=== PATIENT | female | born 1975 | race Caucasian/White ===

== ENCOUNTER 2016-07-11 07:26 | Day surgery (SDC) | payer BC, OTHER ==
[2016-07-07 10:46] LABS: ABSOLUTE BASOPHILS # (AUTO) 0.1 10^3/uL (0.0-0.2); ABSOLUTE EOSINOPHILS # (AUTO) 0.2 10^3/uL (0.0-0.6); ABSOLUTE LYMPHOCYTES (AUTO) 1.4 10^3/uL (0.5-4.7); ABSOLUTE MONOCYTES (AUTO) 0.8 10^3/uL (0.1-1.4); ABSOLUTE NEUT (AUTO) 6.1 10^3/uL (1.7-8.2); BASOPHILS % (AUTO) 1.1 % (0-2); EOSINOPHILS % (AUTO) 2.9 % (0-6); HEMATOCRIT 38.4 % (36.0-47.0); HEMOGLOBIN 12.4 g/dL (12.0-15.5); HGB HCT DIFFERENCE -1.2; LYMPHOCYTES % (AUTO) 16.5 % (13-45); MEAN CORPUSCULAR HEMOGLOBIN 29.6 pg (27.0-33.4); MEAN CORPUSCULAR HGB CONC 32.2 g/dL (32.0-36.0); MEAN CORPUSCULAR VOLUME 92 fl (80-97); RED BLOOD COUNT 4.18 10^6/uL (3.72-5.28); RED CELL DISTRIBUTION WIDTH 13.3 % (11.5-14.0); SEGMENTED NEUTROPHILS % (AUTO) 70.5 % (42-78); WHITE BLOOD COUNT 8.6 10^3/uL (4.0-10.5)
[2016-07-11] MEDS ORDERED: LIDOCAINE 1%/EPINEPHRINE INJ 20 ML VIAL ONE (08:10)
[2016-07-11] MEDS ORDERED: MIDAZOLAM 2 MG/2 ML INJ ONE (08:20)
[2016-07-11] MEDS ORDERED: DEXAMETHASONE SOD PHOS INJ 10 MG/1 ML VIAL ONE (08:21)
[2016-07-11] MEDS ORDERED: ONDANSETRON HCL INJ/PF 4 MG/2 ML SDV ONE (08:21)
[2016-07-11] MEDS ORDERED: HYDROMORPHONE HCL INJ/PF 2 MG/ML AMPULE ONE (08:21)
[2016-07-11] MEDS ORDERED: SUCCINYLCHOLINE CHLORIDE INJ 200 MG/10 ML VIAL ONE (08:22)
[2016-07-11] MEDS ORDERED: PROPOFOL INJ 200 MG/20 ML VIAL IV ONE (08:22)
--- NOTE | 2016-07-11 09:08 | OPERATIVE REPORT E ---
Operative Report NAME: BABS KYLE : 1975 AGE: 41Y DATE OF SURGERY: 07/11/2016 ROOM: PREOPERATIVE DIAGNOSIS: Tonsil stones. POSTOPERATIVE DIAGNOSIS: Tonsil stones. OPERATION: Tonsillectomy. SURGEON: MAKI REDDY III, M.D. MANAGER PROGRAMMING: None. ANESTHESIA: General. ESTIMATED BLOOD LOSS: Less than 2 mL. FLUIDS: D5 regular lactate. DRAINS: None. CULTURES: None. PROCEDURE: The patient was properly identified, as was the operative procedure, and was satisfactory to all operating room personnel. A McIvor mouth gag was inserted in the oropharynx and engaged. The left tonsil was grasped with the tonsillar tenaculum and retracted medially. Using a combination of blunt and electrodissection, tonsil was dissected away from its bed. Hemostasis was obtained using electrocautery. A similar procedure was performed on the opposite tonsil. Hemostasis was excellent. The patient appeared to tolerate her procedure well and was returned to the recovery room in satisfactory condition. DICTATING PHYSICIAN: MAKI REDDY III M.D. [id number] Y#: [id number] ID: [id number] JOB#: [id number] ACCT: [id number] cc:MAKI REDDY III, M.D. >
[2016-07-11] MEDS ORDERED: OXYCODONE-ACETAMINOPHEN 5-325 MG TABLET ONE (09:33)
== END 2016-07-11 10:20 | disposition home or self-care (01) ==
LOC: SC 07:26
PROVIDERS: ATTEND Otolaryngology
PROC: 0CTPXZZ Resection of Tonsils, External Approach (ICD-10-PCS; principal; 2016-07-11 08:15)
DX: J35.8 Other chronic diseases of tonsils and adenoids (principal); J35.1 Hypertrophy of tonsils; Z88.2 Allergy status to sulfonamides
CPT/HCPCS: 36415; 85025; 88304 ×2; 42826; J2250; J1170; J0330; J2405; J2704; J1100; 170; J3490

== ENCOUNTER → 2017-01-01 | Outpatient (CLI) | payer BC ==
--- NOTE | 2017-01-01 15:50 | WOMENS IMAGING REPORT ---
EXAM DESCRIPTION: 3D SCREENING MAMMO BILAT COMPLETED DATE/TIME: 01/01/2017 1:39 pm REASON FOR STUDY: Z12.31, ROUTINE SCREENING MAMMO Z12.31 ENCNTR SCREEN MAMMOGRAM FOR MALIGNANT NEOP LASM OF TABBY COMPARISON: In 2015 and December 2012 TECHNIQUE: Standard craniocaudal and mediolateral oblique views of each breast recorded using digita l acquisition and breast tomosynthesis. Additional "push-back craniocaudal and mediolateral oblique images acquired. LIMITATIONS: None. FINDINGS: IMPLANTS: Bilateral intact Findings present which are benign by mammographic criteria. No suspicious masses, calcifications or a rchitectural distortion. Read with the assistance of CAD. .[facility] - R2 Cenova Version 1.3 .[facility] - R2 Cenova Version 1.3 .[facility] - R2 Cenova Version 2.4 .[facility] - R2 Cenova Version 2.4 .[facility] - R2 Slot Service Specialist Version 9.2 Benign mammographic findings may include one or more of the following: Smooth masses, popcorn/rim/co arse calcifications, asymmetries, post-procedure changes, and lesions with long-standing stability. IMPRESSION: BENIGN MAMMOGRAPHIC FINDINGS. BIRADS 2 BREAST DENSITY: b. There are scattered areas of fibroglandular density. BIRAD: 2 BENIGN FINDING(S) RECOMMENDATION: ROUTINE SCREENING COMMENT: The patient has been notified of the results by letter per SA requirements. Additional no tification policies are in place for contacting patient with suspicious or incomplete findings. Quality ID #[id number]: The [employer] recommends an annual screening mammogram for women aged 40 years or over. This facility utilizes a reminder system to ensure that all patients receive reminder letters, and/or direct phone calls for appointments. This includes reminders for routine scr eening mammograms, diagnostic mammograms, or other Breast Imaging Interventions when appropriate. Th is patient will be placed in the appropriate reminder system. The [employer] [place] [employer] (ACR) has developed recommendations for screening MRI of the breast s in certain patient populations, to be used in conjunction with mammography. Breast MRI surveillanc e may be appropriate for women with more than 20% lifetime risk of developing breast cancer as deter mined by genetic testing, significant family history of the disease, or history of mantle radiation f or Hodgkins Disease. ACR Practice Guidelines 2008. DBT Technology DBT is a type of tomographic mammography. With conventional mammography, overlapping breast tissue ma y make lesions difficult to detect, even with good compression. DBT uses an x-ray tube that rotates a round the breast, taking images at different angles. These images are then combined to create thin sl ices of the breast that the radiologist can view as a 3D reconstruction. The HoloTherosteon unit can perform full-field digital mammograms (2D imaging); or DBT (3D imaging); or both, in a combination mode that quickly performs both the mammogram and the tomosynthesis scan while the breast is still compressed. PQRS 6045F: Fluoroscopic imaging is not utilized for breast tomosynthesis. TECHNICAL DOCUMENTATION: FINDING NUMBER: (1) ASSESSMENT: (1) JOB ID: [id number] [employer]- All Rights Reserved
== END ==
LOC: WI 13:00
PROVIDERS: ATTEND Physician Assistant
DX: Z12.31 Encounter for screening mammogram for malignant neoplasm of breast (principal)
CPT/HCPCS: 77063; G0202; 77067

== ENCOUNTER 2018-03-27 16:32 | Inpatient (IN) | payer BC ==
--- NOTE | 2018-03-27 16:53 | ER Document Report ---
ED Medical Screen (RME) - General Chief Complaint: Fever Stated Complaint: FEVER Time Seen by Provider: 03/27/18 16:51 Mode of Arrival: Ambulatory Information source: Patient TRAVEL OUTSIDE OF THE [place] IN LAST 30 DAYS: No - HPI Patient complains to provider of: fever Onset: Other - pt with h/o MS with fever tyo 103.7 over the past 3 days. Went to yesterday and had some tests done. Spoke to her neurologist today and told to go to ED for LP. Has a disc with CXR on it. - Related Data Allergies/Adverse Reactions: Sulfa (Sulfonamide Antibiotics) Allergy (Intermediate, Verified 03/27/18 16:33) rash/hives Past Medical History - Past Medical History Cardiac Medical History: Denies: Hx Heart Attack, Hx Hypertension Pulmonary Medical History: Denies: Hx Asthma Neurological Medical History: Denies: Hx Cerebrovascular Accident, Hx Seizures GI Medical History: Denies: Hx Hepatitis, Hx Hiatal Hernia, Hx Ulcer Infectious Medical History: Denies: Hx Hepatitis Past Surgical History: Denies: Hx Hysterectomy, Hx Mastectomy, Hx Open Heart Surgery, Hx Pacemaker - Immunizations Hx Diphtheria, Pertussis, Tetanus Vaccination: Yes Physical Exam - Vital signs Vitals: Temp Pulse Resp BP Pulse Ox 98.8 F 94 16 102/59 L 100 03/27/18 16:39 03/27/18 16:39 03/27/18 16:39 03/27/18 16:39 03/27/18 16:39 Course - Vital Signs Vital signs: Temp Pulse Resp BP Pulse Ox 98.8 F 94 16 102/59 L 100 03/27/18 16:39 03/27/18 16:39 03/27/18 16:39 03/27/18 16:39 03/27/18 16:39 Doctor's Discharge - Discharge Referrals: MARLEY CASILLAS PA-C [Primary Care Provider] - Follow up as needed
[2018-03-27 17:37] LABS: ABSOLUTE EOSINOPHILS # (AUTO) 0.1 10^3/uL (0.0-0.6); ABSOLUTE MONOCYTES (AUTO) 0.1 10^3/uL (0.1-1.4); ABSOLUTE NEUT (AUTO) 0.1 10^3/uL (1.7-8.2); BASOPHILS % (AUTO) 1.3 % (0-2); EOSINOPHILS % (AUTO) 33.4 % (0-6); HEMATOCRIT 30.7 % (36.0-47.0); HEMOGLOBIN 10.8 g/dL (12.0-15.5); LYMPHOCYTES % (AUTO) 9.2 % (13-45); MEAN CORPUSCULAR HEMOGLOBIN 31.2 pg (27.0-33.4); MEAN CORPUSCULAR HGB CONC 35.3 g/dL (32.0-36.0); MEAN CORPUSCULAR VOLUME 88 fl (80-97); MONOCYTES % (AUTO) 18.3 % (3-13); RED BLOOD COUNT 3.47 10^6/uL (3.72-5.28); RED CELL DISTRIBUTION WIDTH 13.8 % (11.5-14.0); SEGMENTED NEUTROPHILS % (AUTO) 37.8 % (42-78); TOTAL CELLS COUNTED % (AUTO) 100 %
[2018-03-27 17:48] LABS: ALANINE AMINOTRANSFERASE 25 U/L (9-52); ALBUMIN 3.7 g/dL (3.5-5.0); ALKALINE PHOSPHATASE 84 U/L (38-126); ANION GAP 10 (5-19); ASPARTATE AMINO TRANSFERASE 21 U/L (14-36); BILIRUBIN,DIRECT 0.2 mg/dL (0.0-0.4); BILIRUBIN,TOTAL 0.6 mg/dL (0.2-1.3); BLOOD UREA NITROGEN 7 mg/dL (7-20); CALCIUM 8.6 mg/dL (8.4-10.2); CARBON DIOXIDE 23 mmol/L (22-30); CHLORIDE 104 mmol/L (98-107); GLUCOSE 101 mg/dL (75-110); POTASSIUM 3.7 mmol/L (3.6-5.0); SODIUM 136.8 mmol/L (137-145); TOTAL PROTEIN 6.7 g/dL (6.3-8.2)
[2018-03-27 17:56] LABS: PLATELET COUNT 190 10^3/uL (150-450)
[2018-03-27 17:57] LABS: WHITE BLOOD COUNT 0.3 10^3/uL (4.0-10.5)
[2018-03-27 17:58] LABS: OVALOCYTES SLIGHT; PLATELET CLUMPS PRESENT; PLATELET COMMENT ADEQUATE; POIKILOCYTOSIS 1+; TEAR DROP CELLS SLIGHT
[2018-03-27] MEDS ORDERED: VANCOMYCIN HCL INJ 1000 MG VIAL IV ONE (18:42)
[2018-03-27] MEDS ORDERED: CEFEPIME 2 GM/D5W RTU 2 GM/50 ML RTUPB IV ONE (18:42)
[2018-03-27] MEDS ORDERED: NORMAL SALINE 1000 ML 1,000 ML IV ONE (18:42)
--- NOTE | 2018-03-27 19:05 | ER Document Report ---
ED General - General Chief Complaint: Fever Stated Complaint: FEVER Time Seen by Provider: 03/27/18 16:51 Mode of Arrival: Ambulatory Notes: Patient is a 43-year-old female with a past medical history of multiple sclerosis recently started on immunomodulatory therapy for treatment who presents with fever. The patient has had fever up to 103.9 F starting 48 hours ago. Her only additional symptom is a scratchy throat. She states that when the fever is present she does have a mild, global, throbbing headache which is not currently present. She has been using Tylenol with improvement of her fever. She has followed up with a neurologist base out [facility] who requested that she come to the emergency department today for further assessment. No history of similar symptoms in the past since starting this therapy. TRAVEL OUTSIDE OF THE [place] IN LAST 30 DAYS: No - Related Data Allergies/Adverse Reactions: Sulfa (Sulfonamide Antibiotics) Allergy (Intermediate, Verified 03/27/18 16:33) rash/hives Past Medical History - General Information source: Patient - Social History Smoking Status: Never Smoker Frequency of alcohol use: Occasional Drug Abuse: None Lives with: Spouse/Significant other Family History: Reviewed & Not Pertinent Patient has suicidal ideation: No Patient has homicidal ideation: No - Past Medical History Cardiac Medical History: Denies: Hx Heart Attack, Hx Hypertension Pulmonary Medical History: Denies: Hx Asthma Neurological Medical History: Denies: Hx Cerebrovascular Accident, Hx Seizures Renal/ Medical History: Denies: Hx Peritoneal Dialysis GI Medical History: Denies: Hx Hepatitis, Hx Hiatal Hernia, Hx Ulcer Psychiatric Medical History: Reports: Hx Depression Infectious Medical History: Denies: Hx Hepatitis Past Surgical History: Reports: Hx Breast Surgery - Breast Augmentation, Hx Oral Surgery - [place] Teeth, Hx Tonsillectomy. Denies: Hx Hysterectomy, Hx Mastectomy, Hx Open Heart Surgery, Hx Pacemaker - Immunizations Hx Diphtheria, Pertussis, Tetanus Vaccination: Yes Review of Systems - Review of Systems Notes: Constitutional: Positive for fever. HENT: Positive for sore throat. Eyes: Negative for visual changes. Cardiovascular: Negative for chest pain. Respiratory: Negative for shortness of breath. Gastrointestinal: Negative for abdominal pain, vomiting or diarrhea. Genitourinary: Negative for dysuria. Musculoskeletal: Negative for back pain. Skin: Negative for rash. Neurological: Negative for headaches, weakness or numbness. 10 point ROS negative except as marked above and in HPI. Physical Exam - Vital signs Vitals: Temp Pulse Resp BP Pulse Ox 98.8 F 94 16 102/59 L 100 03/27/18 16:39 03/27/18 16:39 03/27/18 16:39 03/27/18 16:39 03/27/18 16:39 Interpretation: Normal Notes: PHYSICAL EXAMINATION: GENERAL: Well-appearing, well-nourished and in no acute distress. HEAD: Atraumatic, normocephalic. EYES: Pupils equal round and reactive to light, extraocular movements intact, sclera anicteric, conjunctiva are normal. ENT: nares patent, oropharynx clear without exudates. Moist mucous membranes. NECK: Normal range of motion, supple without lymphadenopathy LUNGS: Breath sounds clear to auscultation bilaterally and equal. No wheezes rales or rhonchi. HEART: Regular rate and rhythm without murmurs ABDOMEN: Soft, nontender, normoactive bowel sounds. No guarding, no rebound. No masses appreciated. EXTREMITIES: Normal range of motion, no pitting or edema. No cyanosis. NEUROLOGICAL: No focal neurological deficits. Moves all extremities spontaneously and on command. PSYCH: Normal mood, normal affect. SKIN: Warm, Dry, normal turgor, no rashes or lesions noted. Course - Re-evaluation Re-evalutation: 03/27/18 19:03 Patient presents with neutropenic fever without localizing infectious symptoms. Initial documentation is delayed as I have been at this patient's bedside discussing with the family as well as discussing with the patient's neurologist for the past 35 minutes. Patient is otherwise very well in appearance, no meningismus, no cough, no sputum production, no pharyngitis or lymphadenopathy. Symptoms appear to be most likely consistent with a drug fever but given her profound neutropenia and fever she will require hospitalization on IV time antibiotics and cultures are pending. I have reassessed the patient on 2 separate occasions already, have had multiple conversations with the family, contacted the patient's neurologist in [place] Dr. Felix and I have also discussed this case with our local customer counter associate Dr. Doss. The patient has been started on cefepime and vancomycin. Maintenance fluids have been initiated. Will discuss with the hospitalist for admission. 03/27/18 19:24 Patient continues to be well in appearance. I discussed with Dr. Garrido who is excepted the patient for admission and is in agreement with management plan. - Vital Signs Vital signs: Temp Pulse Resp BP Pulse Ox 97.8 F 85 14 114/63 97 03/27/18 21:59 03/28/18 02:00 03/27/18 21:59 03/27/18 21:59 03/27/18 21:59 - Laboratory Result Diagrams: 03/27/18 17:01 03/27/18 17:01 Laboratory results interpreted by me: 03/27/18 03/27/18 17:01 17:01 WBC 0.3 L* RBC 3.47 L Hgb 10.8 L Hct 30.7 L Seg Neutrophils % 37.8 L Lymphocytes % 9.2 L Monocytes % 18.3 H Eosinophils % 33.4 H Absolute Neutrophils 0.1 L Absolute Lymphocytes 0.0 L Sodium 136.8 L - Diagnostic Test Radiology reviewed: Image reviewed, Reports reviewed Radiology results interpreted by me: 03/27/18 19:25 Chest x-ray: No acute infiltrate or pneumothorax Critical Care Note - Critical Care Note Total time excluding time spent on procedures (mins): 36 Comments: Critical care time spent on consultation with the patient's neurologist, oncology here locally, the hospitalist, multiple reassessments of the patient, discussing with the family and patient at length regarding the care plan. Discharge - Discharge Clinical Impression: Neutropenic fever, Fever of unknown origin Condition: Fair Disposition: ADMITTED INPATIENT Admitting Provider: Hospitalist Unit Admitted: Telemetry
--- NOTE | 2018-03-27 19:21 | RADIOLOGY REPORT (SQ) ---
EXAM DESCRIPTION: CHEST SINGLE VIEW COMPLETED DATE/TIME: 03/27/2018 6:57 pm REASON FOR STUDY: fever COMPARISON: 04/13/2012 TECHNIQUE: Single frontal radiographic view of the chest acquired. NUMBER OF VIEWS: One view. LIMITATIONS: None. FINDINGS: LUNGS AND PLEURA: No pneumothorax. No consolidation or pleural effusion. MEDIASTINUM AND HILAR STRUCTURES: Stable. HEART AND VASCULAR STRUCTURES: Stable. BONES: No acute findings. HARDWARE: None in the chest. OTHER: No other significant finding. IMPRESSION: NO ACUTE FINDINGS. TECHNICAL DOCUMENTATION: JOB ID: [id number] [place]-72 2010 [employer]- All Rights Reserved Reading location - IP/workstation name: [email or web address]
[2018-03-27] MEDS ORDERED: MAG HYDROX/AL HYDROX/SIMETH SUSP 30 ML UDCUP PO PRN (19:23)
[2018-03-27] MEDS ORDERED: VANCOMYCIN HCL 0 MG in DEXTROSE 5%-WATER 250 ML IV NR (19:30)
[2018-03-27 20:06] LABS: APPEARANCE,URINE CLEAR; BILIRUBIN,URINE NEGATIVE (NEGATIVE); COLOR,URINE YELLOW; GLUCOSE, URINE NEGATIVE (NEGATIVE); KETONES,URINE TRACE mg/dL (NEGATIVE); LEUKOCYTE ESTERASE,URINE NEGATIVE (NEGATIVE); NITRITE,URINE NEGATIVE (NEGATIVE); PROTEIN,URINE NEGATIVE (NEGATIVE); URINE SPECIFIC GRAVITY 1.008; UROBILINOGEN,URINE NEGATIVE mg/dL (<2.0)
--- NOTE | 2018-03-27 20:37 | PDOC H&P ---
History of Present Illness Admission Date/PCP: 03/27/18 19:38 ARMIDA RODAS MD Patient complains of: Fever History of Present Illness: BABS ROMANO is a 43 year old female with a past medical history of multiple sclerosis manifesting chronic migraine, diffuse joint pain, insomnia and depression. Patient presents 3 weeks after initiation of a 5-day course of chemotherapy of [place]. She is had 48 hours of fever prompting evaluation at primary care placed on azithromycin for possible URI. Symptoms have progressed with worsening fever, myalgia, arthralgia and headache prompting evaluation in the emergency room where she is found to have profound neutropenia. She denies photophobia or neck stiffness. Emergency room provider consults patient's neurologist Dr. Felix and store stock help Dr. Green. Both recommending hospitalization for treatment of neutropenic fever with vancomycin and cefepime. She is referred to the hospitalist for admission. Patient denies previous episode, denies focal pain beyond exacerbation of chronic. Past Medical History Cardiac Medical History: Denies: Myocardial Infarction, Hypertension Pulmonary Medical History: Denies: Asthma Neurological Medical History: Denies: Seizures GI Medical History: Denies: Hepatitis, Hiatal Hernia Psychiatric Medical History: Reports: Depression Hematology: Reports: Anemia - HX OF Denies: Sickle Cell Disease Past Surgical History Past Surgical History: Reports: Tonsillectomy, Other - Breast augmentation Denies: Amputation, Hysterectomy, Pacemaker Social History Information Source: Patient Lives with: Spouse/Significant other Smoking Status: Never Smoker Frequency of Alcohol Use: None Drugs: None - Advance Directive Resuscitation Status: Full Code Family History Family History: Hypertension Parental Family History Reviewed: Yes Children Family History Reviewed: Yes Sibling(s) Family History Reviewed.: Yes Medication/Allergy Home Medications: Bupropion HCl [Wellbutrin 100 mg Tablet] 100 mg PO DAILY 07/07/16 Allergies/Adverse Reactions: Sulfa (Sulfonamide Antibiotics) Allergy (Intermediate, Verified 03/27/18 16:33) rash/hives Review of Systems Constitutional: ABSENT: chills, fever(s), headache(s), weight gain, weight loss Eyes: ABSENT: visual disturbances Ears: ABSENT: hearing changes Cardiovascular: ABSENT: chest pain, dyspnea on exertion, edema, orthropnea, palpitations Respiratory: ABSENT: cough, hemoptysis Gastrointestinal: ABSENT: abdominal pain, constipation, diarrhea, hematemesis, hematochezia, nausea, vomiting Genitourinary: ABSENT: dysuria, hematuria Musculoskeletal: ABSENT: joint swelling Integumentary: ABSENT: rash, wounds Neurological: ABSENT: abnormal gait, abnormal speech, confusion, dizziness, focal weakness, syncope Psychiatric: ABSENT: anxiety, depression, homidical ideation, suicidal ideation Endocrine: ABSENT: cold intolerance, heat intolerance, polydipsia, polyuria Hematologic/Lymphatic: ABSENT: easy bleeding, easy bruising Physical Exam Vital Signs: Temp Pulse Resp BP Pulse Ox 98 F 94 22 H 104/74 100 03/27/18 20:18 03/27/18 16:39 03/27/18 20:05 03/27/18 20:05 03/27/18 20:05 General appearance: PRESENT: no acute distress, well-developed, well-nourished Head exam: PRESENT: atraumatic, normocephalic Eye exam: PRESENT: conjunctiva pink, EOMI, PERRLA. ABSENT: scleral icterus Ear exam: PRESENT: normal external ear exam Mouth exam: PRESENT: moist, tongue midline Neck exam: ABSENT: carotid bruit, JVD, lymphadenopathy, thyromegaly Respiratory exam: PRESENT: clear to auscultation castro. ABSENT: rales, rhonchi, wheezes Cardiovascular exam: PRESENT: RRR. ABSENT: diastolic murmur, rubs, systolic murmur Pulses: PRESENT: normal dorsalis pedis pul Vascular exam: PRESENT: normal capillary refill GI/Abdominal exam: PRESENT: normal bowel sounds, soft. ABSENT: distended, guarding, mass, organolmegaly, rebound, tenderness Rectal exam: PRESENT: deferred Extremities exam: PRESENT: full ROM. ABSENT: calf tenderness, clubbing, pedal edema Neurological exam: PRESENT: alert, awake, oriented to person, oriented to place , oriented to time, oriented to situation, CN II-XII grossly intact. ABSENT: motor sensory deficit Psychiatric exam: PRESENT: appropriate affect, normal mood. ABSENT: homicidal ideation, suicidal ideation Skin exam: PRESENT: dry, intact, warm. ABSENT: cyanosis, rash Results Laboratory Results: 03/27/18 19:50 Urine Color YELLOW Urine Appearance CLEAR Urine pH 6.0 Ur Specific [place] 1.008 Urine Protein NEGATIVE Urine Glucose (UA) NEGATIVE Urine Ketones TRACE H Urine Blood MODERATE H Urine Nitrite NEGATIVE Ur Leukocyte Esterase NEGATIVE Urine WBC (Auto) 0 Urine RBC (Auto) 1 Impressions: Chest X-Ray 03/27/18 18:22 IMPRESSION: NO ACUTE FINDINGS. Assessment & Plan - Diagnosis (1) Neutropenic fever Is this a current diagnosis for this admission?: Yes Plan: Inpatient hospitalization with neutropenic precautions, azithromycin, vancomycin and cefepime. Follow-up CBC and hematology consult (2) Multiple sclerosis Is this a current diagnosis for this admission?: Yes Plan: Supportive care, defer to outpatient rheumatology, neurology. (3) Insomnia Is this a current diagnosis for this admission?: Yes Plan: Trial Ambien - Time Time Spent: 50 to 70 Minutes - Inpatient Certification Medical Necessity: Need Close Monitoring Due to Risk of Patient Decompensation
[2018-03-27 20:55] LABS: A TYPE INFLUENZA AG NEGATIVE (NEGATIVE); B INFLUENZA AG NEGATIVE (NEGATIVE)
[2018-03-27] MEDS: HEPARIN SOD (PORCINE) 5,000 UNIT/ML 1 ML SYRINGE SUBCUT SCH (21:26)
[2018-03-27] MEDS: ACETAMINOPHEN 325 MG TABLET PO PRN (22:01)
[2018-03-27] MEDS: NORMAL SALINE 1000 ML 1,000 ML IV PRN (22:02)
[2018-03-27] MEDS ORDERED: GABAPENTIN 300 MG CAPSULE PO ONE (22:15)
[2018-03-27] MEDS: ZOLPIDEM TARTRATE 5 MG TABLET PO PRN (23:40)
[2018-03-28] MEDS: NORMAL SALINE 1000 ML 1,000 ML IV PRN (03:22)
[2018-03-28] MEDS ORDERED: CEFEPIME 1 GM/D5W RTU 1 GM/50 ML RTUPB IV ONE (05:33)
[2018-03-28] MEDS: HEPARIN SOD (PORCINE) 5,000 UNIT/ML 1 ML SYRINGE SUBCUT SCH ×3 (05:53→21:17)
[2018-03-28] MEDS: CEFEPIME 1 GM/D5W RTU 1 GM/50 ML RTUPB IV SCH ×2 (05:53→17:38)
[2018-03-28] MEDS: ACETAMINOPHEN 325 MG TABLET PO PRN (06:00)
[2018-03-28 06:27] LABS: HEMATOCRIT 27.2 % (36.0-47.0); HEMOGLOBIN 9.7 g/dL (12.0-15.5); MEAN CORPUSCULAR HEMOGLOBIN 31.2 pg (27.0-33.4); MEAN CORPUSCULAR HGB CONC 35.8 g/dL (32.0-36.0); MEAN CORPUSCULAR VOLUME 87 fl (80-97); PLATELET COUNT 170 10^3/uL (150-450); RED BLOOD COUNT 3.12 10^6/uL (3.72-5.28); RED CELL DISTRIBUTION WIDTH 13.5 % (11.5-14.0)
[2018-03-28 06:47] LABS: ANION GAP 11 (5-19); BLOOD UREA NITROGEN 5 mg/dL (7-20); CALCIUM 8.2 mg/dL (8.4-10.2); CARBON DIOXIDE 21 mmol/L (22-30); CHLORIDE 105 mmol/L (98-107); GLUCOSE 110 mg/dL (75-110); POTASSIUM 4.3 mmol/L (3.6-5.0); SODIUM 137.1 mmol/L (137-145)
[2018-03-28 07:14] LABS: ANISOCYTOSIS SLIGHT; HYPOCHROMASIA SLIGHT; PLATELET COMMENT ADEQUATE
[2018-03-28 07:15] LABS: WHITE BLOOD COUNT 0.3 10^3/uL (4.0-10.5)
[2018-03-28] MEDS: GABAPENTIN 300 MG CAPSULE PO SCH ×3 (09:31→17:38)
[2018-03-28] MEDS: IBUPROFEN 400 MG TABLET PO PRN ×2 (09:31→13:36)
--- NOTE | 2018-03-28 09:33 | PDOC CONSULTATION ---
Consultation Consult Date: 03/28/18 Consult reason:: Hematology/oncology consultation was requested for patient with neutropenic fever after First cycle of Lemtrada for MS. History of Present Illness Admission Date/PCP: 03/27/18 19:38 ARMIDA RODAS MD History of Present Illness: BABS ROMANO is a 43 year old female who is followed by Dr. Desir with [facility] for her MS. She was started on her first cycle of Lemtrada recently and received 5 days of this IV medication. This is a monoclonal antibody to target CD 53+ cells to treat her MS. She states that over the past few days, she has had Temp to 103.9 and has been using Tylenol and Motrin, but this has not been helping. She was seen by PCP and urgent care and strep screen and flu screen were negative. She has been having worsening headaches and a scratchy throat, but no other symptoms of infection. She has been taking her acyclovir as prescribed. In the ED, she was found to have a fever with ANC of 0.1 She was cultures and started on Cefapime and Vanc. This morning, she states that she is stil having headaches off and on. Ibuprofen usually helps. Past Medical History Cardiac Medical History: Denies: Myocardial Infarction, Hypertension Pulmonary Medical History: Denies: Asthma Neurological Medical History: Reports: Multiple Sclerosis Denies: Seizures GI Medical History: Denies: Hepatitis, Hiatal Hernia Psychiatric Medical History: Reports: Depression Hematology: Reports: Anemia - HX OF Denies: Sickle Cell Disease Past Surgical History Past Surgical History: Basal cell skin cancer removed from chest a few days ago, laproscopy for endometriosis. Past Surgical History: Reports: Tonsillectomy, Other - Breast augmentation. Jane Lew teeth extraction, Denies: Amputation, Hysterectomy, Mastectomy, Pacemaker Social History Information Source: Patient Occupation: [employer] Lives with: Spouse/Significant other Smoking Status: Never Smoker Frequency of Alcohol Use: None Drugs: None Past Social History Note: 4 children, 2 step-children. 1 Dog - Advance Directive Resuscitation Status: Full Code Family History Family History: Reviewed & Not Pertinent Parental Family History Reviewed: Yes - PGF with MS. MGM with breast cancer. MGF with Lung cancer. Children Family History Reviewed: Yes Sibling(s) Family History Reviewed.: Yes Medication/Allergy Allergies/Adverse Reactions: Sulfa (Sulfonamide Antibiotics) Allergy (Intermediate, Verified 03/27/18 16:33) rash/hives Review of Systems Constitutional: PRESENT: fever(s), headache(s) Eyes: ABSENT: visual disturbances Ears: ABSENT: hearing changes Nose, Mouth, and Throat: PRESENT: sore throat Cardiovascular: ABSENT: chest pain, dyspnea on exertion Respiratory: ABSENT: dyspnea Gastrointestinal: ABSENT: constipation, diarrhea, nausea, vomiting Genitourinary: ABSENT: dysuria, hematuria Musculoskeletal: PRESENT: muscle weakness Integumentary: ABSENT: rash Neurological: PRESENT: weakness Psychiatric: ABSENT: anxiety, depression Hematologic/Lymphatic: ABSENT: easy bruising, lymphadenopathy Physical Exam Vital Signs: Temp Pulse Resp BP Pulse Ox 102.8 F H 108 H 14 102/91 H 98 03/28/18 06:09 03/28/18 07:00 03/28/18 03:19 03/28/18 03:19 03/28/18 03:19 Intake & Output 03/27/18 03/28/18 03/29/18 06:59 06:59 06:59 Intake Total 1712 Balance 1712 Weight 66.3 kg General appearance: PRESENT: well-developed, well-nourished Exam: 43 year old female. Head exam: PRESENT: normocephalic Eye exam: PRESENT: PERRLA Mouth exam: PRESENT: neck supple, tongue midline Neck exam: ABSENT: lymphadenopathy, tenderness Respiratory exam: PRESENT: clear to auscultation castro, unlabored Cardiovascular exam: PRESENT: RRR Pulses: PRESENT: normal dorsalis pedis pul GI/Abdominal exam: PRESENT: soft. ABSENT: organolmegaly, tenderness Extremities exam: ABSENT: pedal edema Musculoskeletal exam: PRESENT: normal inspection Neurological exam: PRESENT: alert, awake, oriented to person, oriented to place , oriented to time, oriented to situation Psychiatric exam: PRESENT: appropriate affect Focused psych exam: ABSENT: pressured speech, psychomotor agitation Skin exam: PRESENT: normal color Results Laboratory Results: 03/28/18 05:53 03/28/18 05:53 03/27/18 03/28/18 03/28/18 19:50 05:53 05:53 WBC 0.3 L* RBC 3.12 L Hgb 9.7 L Hct 27.2 L MCV 87 MCH 31.2 MCHC 35.8 RDW 13.5 Plt Count 170 Seg Neutrophils % Not Reportable Lymphocytes % Not Reportable Monocytes % Not Reportable Eosinophils % Not Reportable Basophils % Not Reportable Absolute Neutrophils Not Reportable Absolute Lymphocytes Not Reportable Absolute Monocytes Not Reportable Absolute Eosinophils Not Reportable Absolute Basophils Not Reportable Sodium 137.1 Potassium 4.3 Chloride 105 Carbon Dioxide 21 L Anion Gap 11 BUN 5 L Creatinine 0.61 Est GFR ( Amer) > 60 Est GFR (Non-Af Amer) > 60 Glucose 110 Calcium 8.2 L Urine Color YELLOW Urine Appearance CLEAR Urine pH 6.0 Ur Specific [place] 1.008 Urine Protein NEGATIVE Urine Glucose (UA) NEGATIVE Urine Ketones TRACE H Urine Blood MODERATE H Urine Nitrite NEGATIVE Ur Leukocyte Esterase NEGATIVE Urine WBC (Auto) 0 Urine RBC (Auto) 1 Impressions: Chest X-Ray 03/27/18 18:22 IMPRESSION: NO ACUTE FINDINGS. Status: Image reviewed by me Assessment & Plan - Diagnosis (1) Multiple sclerosis Is this a current diagnosis for this admission?: Yes Plan: I spoke with her neurologist, Dr. Desir. No further treatment planned, until she recovers from this new medication. (2) Neutropenic fever Is this a current diagnosis for this admission?: Yes Plan: I have explained to the patient that the most likely cause of the fever is an immune reaction caused by the medication itself. This usually takes several days to improve. Usually, this is treated with steroids. I will give low-dose Dexamethasone over the next 24-48 hours to see if this helps. I will also give neupogen 300 mg SC daily for ANC <1.0. There is current no evidence of autoimmune anemia or thrombocytopenia, but will watch for these as well. With the ANC <1.0, she is also at risk for bacterial infection. Therefore, I agree with antibiotics. However, I would stop the vancomycin after 24 hours and add her acyclovir back. I will order further cultures if temperature continues. (3) Head ache Is this a current diagnosis for this admission?: Yes Plan: This is a side effect of the new medication. She will continue tylenol or ibuprofen for this. May try Ultram or toradol as well if needed. - Plan Summary Plan Summary: I will continue to follow her with you. Please call with any questions or concerns.
[2018-03-28] MEDS ORDERED: FILGRASTIM INJ 300 MCG/1 ML VIAL SUBCUT SCH (10:00)
[2018-03-28] MEDS ORDERED: VANCOMYCIN HCL 750 MG in DEXTROSE 5%-WATER 250 ML IV SCH (11:00)
[2018-03-28] MEDS: ACYCLOVIR 800 MG TABLET PO SCH ×3 (13:16→17:38)
[2018-03-28] MEDS: DEXAMETHASONE 4 MG TABLET PO SCH ×3 (13:17→23:48)
[2018-03-28] MEDS ORDERED: METHYLPREDNISOLONE INJ 125 MG/2 ML SDV IV SCH (14:00)
[2018-03-28] MEDS ORDERED: DICYCLOMINE HCL 10 MG CAPSULE PO ONE (16:30)
[2018-03-28] MEDS: FAMOTIDINE 20 MG TABLET PO SCH (16:46)
--- NOTE | 2018-03-28 18:46 | PDOC PROGRESS REPORT ---
Subjective Progress Note for:: 03/28/18 Subjective:: Ms. Gloria is a 43 yr old female with a PMH of multiple sclerosis recently started on Lemtrada who presented with fever, myalgia and arthralgia. Patient was noted to be severely lukopeic and was admitted for neutropenic fever. No acute event overnight but she continued to have a fever of 100.8 this morning. She says she feels slightly better but still has some myalgia and arthralgia. Denies headache , neck stiffness or photophobia at the moment. Reason For Visit: NEUTROPENIC FEVER, MS Physical Exam Vital Signs: Temp Pulse Resp BP Pulse Ox 98.8 F 96 18 97/54 L 100 03/28/18 16:00 03/28/18 16:00 03/28/18 16:00 03/28/18 16:00 03/28/18 16:00 Intake & Output 03/27/18 03/28/18 03/29/18 06:59 06:59 06:59 Intake Total 1712 1250 Balance 1712 1250 Weight 146 lb 2.664 oz General appearance: PRESENT: no acute distress, well-developed, well-nourished Head exam: PRESENT: atraumatic, normocephalic Eye exam: PRESENT: conjunctiva pink, EOMI, PERRLA. ABSENT: scleral icterus Ear exam: PRESENT: normal external ear exam Mouth exam: PRESENT: moist, tongue midline Neck exam: ABSENT: carotid bruit, JVD, lymphadenopathy, thyromegaly Respiratory exam: PRESENT: clear to auscultation castro. ABSENT: rales, rhonchi, wheezes Cardiovascular exam: PRESENT: RRR. ABSENT: diastolic murmur, rubs, systolic murmur Pulses: PRESENT: normal dorsalis pedis pul Vascular exam: PRESENT: normal capillary refill GI/Abdominal exam: PRESENT: normal bowel sounds, soft. ABSENT: distended, guarding, mass, organolmegaly, rebound, tenderness Rectal exam: PRESENT: deferred Neurological exam: PRESENT: alert, awake, oriented to person, oriented to place , oriented to time, oriented to situation, CN II-XII grossly intact. ABSENT: motor sensory deficit Results Laboratory Results: 03/28/18 05:53 03/28/18 05:53 03/27/18 03/28/18 03/28/18 19:50 05:53 05:53 WBC 0.3 L* RBC 3.12 L Hgb 9.7 L Hct 27.2 L MCV 87 MCH 31.2 MCHC 35.8 RDW 13.5 Plt Count 170 Seg Neutrophils % Not Reportable Lymphocytes % Not Reportable Monocytes % Not Reportable Eosinophils % Not Reportable Basophils % Not Reportable Absolute Neutrophils Not Reportable Absolute Lymphocytes Not Reportable Absolute Monocytes Not Reportable Absolute Eosinophils Not Reportable Absolute Basophils Not Reportable Sodium 137.1 Potassium 4.3 Chloride 105 Carbon Dioxide 21 L Anion Gap 11 BUN 5 L Creatinine 0.61 Est GFR ( Amer) > 60 Est GFR (Non-Af Amer) > 60 Glucose 110 Calcium 8.2 L Urine Color YELLOW Urine Appearance CLEAR Urine pH 6.0 Ur Specific [place] 1.008 Urine Protein NEGATIVE Urine Glucose (UA) NEGATIVE Urine Ketones TRACE H Urine Blood MODERATE H Urine Nitrite NEGATIVE Ur Leukocyte Esterase NEGATIVE Urine WBC (Auto) 0 Urine RBC (Auto) 1 Impressions: Chest X-Ray 03/27/18 18:22 IMPRESSION: NO ACUTE FINDINGS. Assessment & Plan - Diagnosis (1) Neutropenic fever Is this a current diagnosis for this admission?: Yes Plan: Continue cefepime and vancomycin. Hem/onc following. Acyclovir and neupogen also added. Blood cultures pending. Continue neutropenic precautions. - Time Time Spent with patient: 15-24 minutes
[2018-03-28] MEDS: VANCOMYCIN HCL 750 MG in DEXTROSE 5%-WATER 250 ML IV SCH (21:20)
[2018-03-28] MEDS ORDERED: OXYCODONE-ACETAMINOPHEN 5-325 MG TABLET PO PRN (22:27)
[2018-03-28] MEDS: ZOLPIDEM TARTRATE 5 MG TABLET PO PRN (23:48)
[2018-03-29 05:01] LABS: ABSOLUTE LYMPHOCYTES (AUTO) 0.1 10^3/uL (0.5-4.7); ABSOLUTE MONOCYTES (AUTO) 0.1 10^3/uL (0.1-1.4); ABSOLUTE NEUT (AUTO) 0.2 10^3/uL (1.7-8.2); BASOPHILS % (AUTO) 1.2 % (0-2); EOSINOPHILS % (AUTO) 3.5 % (0-6); HEMATOCRIT 28.3 % (36.0-47.0); HEMOGLOBIN 10.1 g/dL (12.0-15.5); LYMPHOCYTES % (AUTO) 22.3 % (13-45); MEAN CORPUSCULAR HEMOGLOBIN 31.4 pg (27.0-33.4); MEAN CORPUSCULAR HGB CONC 35.6 g/dL (32.0-36.0); MEAN CORPUSCULAR VOLUME 88 fl (80-97); MONOCYTES % (AUTO) 28.5 % (3-13); PLATELET COUNT 227 10^3/uL (150-450); RED BLOOD COUNT 3.21 10^6/uL (3.72-5.28); RED CELL DISTRIBUTION WIDTH 13.9 % (11.5-14.0); SEGMENTED NEUTROPHILS % (AUTO) 44.5 % (42-78); TOTAL CELLS COUNTED % (AUTO) 100 %
[2018-03-29 05:28] LABS: ANION GAP 11 (5-19); BLOOD UREA NITROGEN 6 mg/dL (7-20); CALCIUM 9.1 mg/dL (8.4-10.2); CARBON DIOXIDE 22 mmol/L (22-30); CHLORIDE 106 mmol/L (98-107); GLUCOSE 134 mg/dL (75-110); POTASSIUM 4.4 mmol/L (3.6-5.0); SODIUM 138.6 mmol/L (137-145)
[2018-03-29 06:05] LABS: WHITE BLOOD COUNT 0.5 10^3/uL (4.0-10.5)
[2018-03-29 06:09] LABS: PLATELET COMMENT ADEQUATE; RBC MORPHOLOGY COMMENT NORMO-CYTIC/CHROMIC
[2018-03-29] MEDS: DEXAMETHASONE 4 MG TABLET PO SCH ×4 (06:22→23:37)
[2018-03-29] MEDS: FAMOTIDINE 20 MG TABLET PO SCH ×2 (06:22→17:34)
[2018-03-29] MEDS: HEPARIN SOD (PORCINE) 5,000 UNIT/ML 1 ML SYRINGE SUBCUT SCH ×3 (06:23→22:56)
[2018-03-29] MEDS: VANCOMYCIN HCL 750 MG in DEXTROSE 5%-WATER 250 ML IV SCH (06:24)
[2018-03-29] MEDS: CEFEPIME 1 GM/D5W RTU 1 GM/50 ML RTUPB IV SCH ×2 (07:49→17:34)
--- NOTE | 2018-03-29 08:40 | PDOC PROGRESS REPORT ---
Subjective Progress Note for:: 03/29/18 Subjective:: Patient states that she had increased nerve pain last night. She is increasing her gabapentin gradually. Tylenol and Ibuprofen did not help. Pain comes and goes. Otherwise, no new complaints. No temp overnight. ROS: No dyspnea, no diarrhea. No vomiting. Reason For Visit: NEUTROPENIC FEVER, MS Physical Exam Vital Signs: Temp Pulse Resp BP Pulse Ox 98.3 F 85 18 92/48 L 100 03/29/18 04:00 03/29/18 07:00 03/29/18 04:00 03/29/18 04:00 03/29/18 04:00 Intake & Output 03/28/18 03/29/18 03/30/18 06:59 06:59 06:59 Intake Total 1712 1950 Output Total 300 Balance 1712 1650 Weight 66.3 kg 64.4 kg General appearance: PRESENT: no acute distress, well-developed, well-nourished Head exam: PRESENT: normocephalic Respiratory exam: PRESENT: unlabored Neurological exam: PRESENT: alert, awake Psychiatric exam: PRESENT: appropriate affect Skin exam: PRESENT: normal color Results Laboratory Results: 03/29/18 04:32 03/29/18 04:32 03/28/18 03/29/18 03/29/18 19:00 04:32 04:32 WBC 0.5 L* RBC 3.21 L Hgb 10.1 L Hct 28.3 L MCV 88 MCH 31.4 MCHC 35.6 RDW 13.9 Plt Count 227 Seg Neutrophils % 44.5 Lymphocytes % 22.3 Monocytes % 28.5 H Eosinophils % 3.5 Basophils % 1.2 Absolute Neutrophils 0.2 L Absolute Lymphocytes 0.1 L Absolute Monocytes 0.1 Absolute Eosinophils 0.0 Absolute Basophils 0.0 Sodium 138.6 Potassium 4.4 Chloride 106 Carbon Dioxide 22 Anion Gap 11 BUN 6 L Creatinine 0.58 Est GFR ( Amer) > 60 Est GFR (Non-Af Amer) > 60 Glucose 134 H Lactic Acid 1.2 Calcium 9.1 Impressions: Chest X-Ray 03/27/18 18:22 IMPRESSION: NO ACUTE FINDINGS. Assessment & Plan - Diagnosis (1) Multiple sclerosis Is this a current diagnosis for this admission?: Yes Plan: s/p new medication. On gabapentin for nerve pain. (2) Neutropenic fever Is this a current diagnosis for this admission?: Yes Plan: Still unclear if drug/immune reaction or infectious. However, cultures remain negative. I will stop Vancomycin today but continue Cefapine for now. Blood counts have improved with the dexamethasone. I will continue this at least another 24 hours. She will receive neupogen today. (3) Head ache Is this a current diagnosis for this admission?: Yes - Plan Summary Plan Summary: Await ANC >1.0 with no fever for 24 hours. ANC today is 0.2 I encouraged her to get out and walk in hallway today with a mask.
[2018-03-29] MEDS: BUPROPION HCL 100 MG TABLET PO SCH ×3 (09:27→17:35)
[2018-03-29] MEDS: ACYCLOVIR 800 MG TABLET PO SCH ×3 (09:27→17:34)
[2018-03-29] MEDS: GABAPENTIN 300 MG CAPSULE PO SCH ×3 (09:27→17:34)
[2018-03-29] MEDS ORDERED: BUPROPION HCL 100 MG TABLET PO SCH ×2 (10:00)
[2018-03-29] MEDS ORDERED: FILGRASTIM INJ 300 MCG/1 ML VIAL SUBCUT SCH (10:00)
[2018-03-29 11:15] LABS: VANCOMYCIN,TROUGH 13.9 ug/mL (5.0-20.0)
[2018-03-29] MEDS: IBUPROFEN 400 MG TABLET PO PRN (11:16)
[2018-03-29 13:36] LABS: PATH REVIEW PATHOLOGIST REVIEWED
--- NOTE | 2018-03-29 15:31 | PDOC PROGRESS REPORT ---
Subjective Progress Note for:: 03/29/18 Subjective:: Ms. Gloria is a 43 yr old female with a PMH of multiple sclerosis recently started on Lemtrada who presented with fever, myalgia and arthralgia. Patient was noted to be severely lukopeic and was admitted for neutropenic fever. No acute event overnight. No recurrence of fever. Last fever was yesterday at 8 am. She says she feels much better. Denies headache , neck stiffness or photophobia at the moment. Reason For Visit: NEUTROPENIC FEVER, MS Physical Exam Vital Signs: Temp Pulse Resp BP Pulse Ox 98.3 F 97 18 112/63 100 03/29/18 11:18 03/29/18 14:00 03/29/18 11:18 03/29/18 11:18 03/29/18 11:18 Intake & Output 03/28/18 03/29/18 03/30/18 06:59 06:59 06:59 Intake Total 1712 1950 300 Output Total 300 Balance 1712 1650 300 Weight 146 lb 2.664 oz 141 lb 15.643 oz General appearance: PRESENT: no acute distress, well-developed, well-nourished Head exam: PRESENT: atraumatic, normocephalic Eye exam: PRESENT: conjunctiva pink, EOMI, PERRLA. ABSENT: scleral icterus Ear exam: PRESENT: normal external ear exam Mouth exam: PRESENT: moist, tongue midline Neck exam: ABSENT: carotid bruit, JVD, lymphadenopathy, thyromegaly Respiratory exam: PRESENT: clear to auscultation castro. ABSENT: rales, rhonchi, wheezes Cardiovascular exam: PRESENT: RRR. ABSENT: diastolic murmur, rubs, systolic murmur Pulses: PRESENT: normal dorsalis pedis pul Vascular exam: PRESENT: normal capillary refill GI/Abdominal exam: PRESENT: normal bowel sounds, soft. ABSENT: distended, guarding, mass, organolmegaly, rebound, tenderness Rectal exam: PRESENT: deferred Neurological exam: PRESENT: alert, awake, oriented to person, oriented to place , oriented to time, oriented to situation, CN II-XII grossly intact. ABSENT: motor sensory deficit Results Laboratory Results: 03/29/18 04:32 03/29/18 09:49 03/28/18 03/29/18 03/29/18 19:00 04:32 04:32 WBC 0.5 L* RBC 3.21 L Hgb 10.1 L Hct 28.3 L MCV 88 MCH 31.4 MCHC 35.6 RDW 13.9 Plt Count 227 Seg Neutrophils % 44.5 Lymphocytes % 22.3 Monocytes % 28.5 H Eosinophils % 3.5 Basophils % 1.2 Absolute Neutrophils 0.2 L Absolute Lymphocytes 0.1 L Absolute Monocytes 0.1 Absolute Eosinophils 0.0 Absolute Basophils 0.0 Sodium 138.6 Potassium 4.4 Chloride 106 Carbon Dioxide 22 Anion Gap 11 BUN 6 L Creatinine 0.58 Est GFR ( Amer) > 60 Est GFR (Non-Af Amer) > 60 Glucose 134 H Lactic Acid 1.2 Calcium 9.1 03/29/18 09:49 WBC RBC Hgb Hct MCV MCH MCHC RDW Plt Count Seg Neutrophils % Lymphocytes % Monocytes % Eosinophils % Basophils % Absolute Neutrophils Absolute Lymphocytes Absolute Monocytes Absolute Eosinophils Absolute Basophils Sodium Potassium Chloride Carbon Dioxide Anion Gap BUN Creatinine 0.59 Est GFR ( Amer) > 60 Est GFR (Non-Af Amer) > 60 Glucose Lactic Acid Calcium 03/27/18 19:50 Clean Catch Midstream Urine Culture - Final NO GROWTH 2 DAYS 03/27/18 19:45 Throat Throat Culture - Final NORMAL JAKOB Impressions: Chest X-Ray 03/27/18 18:22 IMPRESSION: NO ACUTE FINDINGS. Assessment & Plan - Diagnosis (1) Neutropenic fever Is this a current diagnosis for this admission?: Yes Plan: Neutrophils have improved and has trended to normal. Still leukopenic. Vancomycin d/sharlene. Hem/onc following. Acyclovir and neupogen also added yesterday. Blood cultures have been negative so far. Per hem/onc, if patient remains afebrile in the next 24 hrs with continuing improvement of neutrophil count, she may be discharged tomorrow. (2) Multiple sclerosis Is this a current diagnosis for this admission?: Yes Plan: She will ff-up with her neurologist outpatient. Called neurologist's number and left a voicemail regarding patient status and plan of care. - Time Time Spent with patient: 15-24 minutes
[2018-03-29] MEDS: ZOLPIDEM TARTRATE 5 MG TABLET PO PRN (23:37)
[2018-03-30] MEDS: FAMOTIDINE 20 MG TABLET PO SCH (05:34)
[2018-03-30] MEDS: CEFEPIME 1 GM/D5W RTU 1 GM/50 ML RTUPB IV SCH (05:34)
[2018-03-30] MEDS: DEXAMETHASONE 4 MG TABLET PO SCH (05:35)
[2018-03-30] MEDS: HEPARIN SOD (PORCINE) 5,000 UNIT/ML 1 ML SYRINGE SUBCUT SCH (05:59)
[2018-03-30 07:46] LABS: HEMATOCRIT 27.8 % (36.0-47.0); MEAN CORPUSCULAR HEMOGLOBIN 31.6 pg (27.0-33.4); MEAN CORPUSCULAR HGB CONC 35.9 g/dL (32.0-36.0); MEAN CORPUSCULAR VOLUME 88 fl (80-97); PLATELET COUNT 307 10^3/uL (150-450); RED BLOOD COUNT 3.16 10^6/uL (3.72-5.28); RED CELL DISTRIBUTION WIDTH 13.9 % (11.5-14.0)
[2018-03-30 08:03] LABS: WHITE BLOOD COUNT 2.5 10^3/uL (4.0-10.5)
[2018-03-30 08:08] LABS: ANION GAP 11 (5-19); BLOOD UREA NITROGEN 8 mg/dL (7-20); CALCIUM 9.2 mg/dL (8.4-10.2); CARBON DIOXIDE 25 mmol/L (22-30); CHLORIDE 106 mmol/L (98-107); GLUCOSE 103 mg/dL (75-110); POTASSIUM 3.9 mmol/L (3.6-5.0); SODIUM 141.6 mmol/L (137-145)
[2018-03-30 08:31] LABS: ABSOLUTE LYMPHOCYTES# (MANUAL) 0.2 10^3/uL (0.5-4.7); ABSOLUTE MONOCYTES # (MANUAL) 0.8 10^3/uL (0.1-1.4); ABSOLUTE NEUTROPHILS# (MANUAL) 1.6 10^3/uL (1.7-8.2); BAND NEUTROPHILS % (MANUAL) 7 % (3-5); BASOPHILS % (MANUAL) 0 % (0-2); EOSINOPHILS % (MANUAL) 0 % (0-6); LYMPHOCYTES % (MANUAL) 5 % (13-45); MONOCYTES % (MANUAL) 32 % (3-13); SEGMENTED NEUTROPHILS % (MAN) 55 % (42-78); TOTAL CELLS COUNTED 100
[2018-03-30 08:33] LABS: OVALOCYTES 1+; PLATELET COMMENT ADEQUATE; POIKILOCYTOSIS 1+; TOXIC GRANULATION 2+; TOXIC VACUOLATION PRESENT
--- NOTE | 2018-03-30 08:59 | PDOC PROGRESS REPORT ---
Subjective Progress Note for:: 03/30/18 Subjective:: Patient without fever for 24 hours. She states that she is feeling better. Anxious to hear about blood counts. Reason For Visit: NEUTROPENIC FEVER, MS Physical Exam Vital Signs: Temp Pulse Resp BP Pulse Ox 98.4 F 85 14 108/54 L 100 03/30/18 03:55 03/30/18 03:55 03/30/18 03:55 03/30/18 03:55 03/30/18 03:55 Intake & Output 03/29/18 03/30/18 03/31/18 06:59 06:59 06:59 Intake Total 1950 1050 Output Total 300 400 Balance 1650 650 Weight 64.4 kg 63.1 kg General appearance: PRESENT: no acute distress Eye exam: PRESENT: EOMI Respiratory exam: PRESENT: unlabored Neurological exam: PRESENT: alert, awake Psychiatric exam: PRESENT: appropriate affect Skin exam: PRESENT: normal color Results Laboratory Results: 03/30/18 06:45 03/30/18 06:45 03/29/18 03/30/18 03/30/18 09:49 06:45 06:45 WBC 2.5 L D RBC 3.16 L Hgb 10.0 L Hct 27.8 L MCV 88 MCH 31.6 MCHC 35.9 RDW 13.9 Plt Count 307 Seg Neutrophils % Not Reportable Lymphocytes % Not Reportable Monocytes % Not Reportable Eosinophils % Not Reportable Basophils % Not Reportable Absolute Neutrophils Not Reportable Absolute Lymphocytes Not Reportable Absolute Monocytes Not Reportable Absolute Eosinophils Not Reportable Absolute Basophils Not Reportable Sodium 141.6 Potassium 3.9 Chloride 106 Carbon Dioxide 25 Anion Gap 11 BUN 8 Creatinine 0.59 0.55 Est GFR ( Amer) > 60 > 60 Est GFR (Non-Af Amer) > 60 > 60 Glucose 103 Calcium 9.2 03/27/18 19:50 Clean Catch Midstream Urine Culture - Final NO GROWTH 2 DAYS 03/27/18 19:45 Throat Throat Culture - Final NORMAL JAKOB Impressions: Chest X-Ray 03/27/18 18:22 IMPRESSION: NO ACUTE FINDINGS. Assessment & Plan - Diagnosis (1) Multiple sclerosis Is this a current diagnosis for this admission?: Yes (2) Neutropenic fever Is this a current diagnosis for this admission?: Yes Plan: Now resolved. All cultures were negative. Although this was most likely drug fever, infection is still a possibility. Her dexamethasone finishes today. No further neupogen is indicated. We discussed the fact that over the next few days, the neutropenia may return. However, I will be happy to follow her blood counts in my office to watch this. If it returns, then I will restart Dexamethasone. OK for discharge from my standpoint. I would give 5 more days of oral levaquin only. I will repeat CBC in my office. Please call me with any questions. (3) Head ache Is this a current diagnosis for this admission?: Yes
[2018-03-30] MEDS: BUPROPION HCL 100 MG TABLET PO SCH (10:02)
[2018-03-30] MEDS: ACYCLOVIR 800 MG TABLET PO SCH (10:02)
[2018-03-30] MEDS: GABAPENTIN 300 MG CAPSULE PO SCH (10:02)
[2018-03-30 11:50] VITALS: BP 92/48
--- NOTE | 2018-03-30 17:12 | PDOC DISCHARGE SUMMARY ---
General - Admit/Disc Date/PCP Admission Date/Primary Care Provider: 03/27/18 19:38 ARMIDA RODAS MD Discharge Date: 03/30/18 - Discharge Diagnosis (1) Neutropenic fever Is this a current diagnosis for this admission?: Yes (2) Neuropathy Is this a current diagnosis for this admission?: Yes (3) Multiple sclerosis Is this a current diagnosis for this admission?: Yes - Additional Information Resuscitation Status: Full Code Discharge Diet: As Tolerated Discharge Activity: Activity As Tolerated Prescriptions: Levofloxacin [Levaquin 750 mg Tablet] 750 mg PO DAILY 5 Days #5 tab Home Medications: Acyclovir [Acyclovir 400 mg Tablet] 400 mg PO BID 03/28/18 Bupropion HCl [Wellbutrin Xl 300mg 24hr Tablet] 300 mg PO DAILY 03/28/18 Cholecalciferol (Vitamin D3) [Vitamin D3 1000 Unit Tablet] 5,000 unit PO DAILY 03/28/18 Codeine/Butalbital/ASA/Caffein [Ascomp with Codeine Capsule] 1 cap PO DAILYP PRN 03/28/18 Cyanocobalamin (Vitamin B-12) [Vitamin B-12 1000 mcg Tablet] 1,000 mcg PO DAILY 03/28/18 Gabapentin [Neurontin 300 mg Capsule] 300 mg PO TID 03/28/18 Levofloxacin [Levaquin 750 mg Tablet] 750 mg PO DAILY 5 Days #5 tab 03/30/18 History of Present Illness History of Present Illness: BABS ROMANO is a 43 year old female with a past medical history of multiple sclerosis manifesting, chronic migraine, diffuse joint pain, insomnia and depression. Patient presents 3 weeks after initiation of a 5-day course of Lemtrada. She is had 48 hours of fever prompting evaluation at primary care placed on azithromycin for possible URI. Symptoms have progressed with worsening fever, myalgia, arthralgia and headache prompting evaluation in the emergency room where she is found to have profound neutropenia. She denies photophobia or neck stiffness. Emergency room provider consulted patient's neurologist Dr. Felix and child welfare counselor Dr. Green. Both recommending hospitalization for treatment of neutropenic fever with vancomycin and cefepime. She is referred to the hospitalist for admission. Patient denies previous episode, denies focal pain beyond exacerbation of chronic. Hospital Course Hospital Course: (1) Neutropenic fever Neutropenia and leukopenia improved. Afebrile for the last 24 hours. Vancomycin and cefepime DC'd. Patient discharged on levofloxacin for 5 days as per hematology oncology recommendation. She was placed on acyclovir and Neupogen. Blood cultures have been negative the day of discharge. Should follow-up with her neurologist and child welfare counselor as outpatient. (2) Multiple sclerosis Patient has an established neurologist as outpatient. Was advised to follow-up with her neurologist. (3) Neuropathy Due to underlying MS. Patient was started on Neurontin. Physical Exam Vital Signs: Temp Pulse Resp BP Pulse Ox 98.4 F 79 21 H 92/48 L 100 03/30/18 11:46 03/30/18 11:46 03/30/18 11:46 03/30/18 11:46 03/30/18 11:46 Intake & Output 03/29/18 03/30/18 03/31/18 06:59 06:59 06:59 Intake Total 1950 1050 2 Output Total 300 400 620 Balance 1650 650 -618 Weight 64.4 kg 63.1 kg General appearance: PRESENT: no acute distress, well-developed, well-nourished Head exam: PRESENT: atraumatic, normocephalic Eye exam: PRESENT: conjunctiva pink, EOMI, PERRLA. ABSENT: scleral icterus Ear exam: PRESENT: normal external ear exam Mouth exam: PRESENT: moist, tongue midline Neck exam: ABSENT: carotid bruit, JVD, lymphadenopathy, thyromegaly Respiratory exam: PRESENT: clear to auscultation castro. ABSENT: rales, rhonchi, wheezes Cardiovascular exam: PRESENT: RRR. ABSENT: diastolic murmur, rubs, systolic murmur Pulses: PRESENT: normal dorsalis pedis pul Vascular exam: PRESENT: normal capillary refill GI/Abdominal exam: PRESENT: normal bowel sounds, soft. ABSENT: distended, guarding, mass, organolmegaly, rebound, tenderness Rectal exam: PRESENT: deferred Extremities exam: PRESENT: full ROM. ABSENT: calf tenderness, clubbing, pedal edema Neurological exam: PRESENT: alert, awake, oriented to person, oriented to place , oriented to time, oriented to situation, CN II-XII grossly intact. ABSENT: motor sensory deficit Psychiatric exam: PRESENT: appropriate affect, normal mood. ABSENT: homicidal ideation, suicidal ideation Skin exam: PRESENT: dry, intact, warm. ABSENT: cyanosis, rash Results Laboratory Results: 03/30/18 06:45 03/30/18 06:45 03/30/18 03/30/18 06:45 06:45 WBC 2.5 L D RBC 3.16 L Hgb 10.0 L Hct 27.8 L MCV 88 MCH 31.6 MCHC 35.9 RDW 13.9 Plt Count 307 Seg Neutrophils % Not Reportable Lymphocytes % Not Reportable Monocytes % Not Reportable Eosinophils % Not Reportable Basophils % Not Reportable Absolute Neutrophils Not Reportable Absolute Lymphocytes Not Reportable Absolute Monocytes Not Reportable Absolute Eosinophils Not Reportable Absolute Basophils Not Reportable Sodium 141.6 Potassium 3.9 Chloride 106 Carbon Dioxide 25 Anion Gap 11 BUN 8 Creatinine 0.55 Est GFR ( Amer) > 60 Est GFR (Non-Af Amer) > 60 Glucose 103 Calcium 9.2 Impressions: Chest X-Ray 03/27/18 18:22 IMPRESSION: NO ACUTE FINDINGS. Qualifiers - * PATIENT BEING DISCHARGED WITH ANY OF THE FOLLOWING DIAGNOSIS: No VTE patient discharged on overlapping Therapy?: Yes
== END 2018-03-30 12:41 | disposition home or self-care (01) | DRG 810 ==
LOC: ER 16:32 → EH 19:38 → 5 21:10
PROVIDERS: ADMIT Internal Medicine; ATTEND Internal Medicine
DX: D70.2 Other drug-induced agranulocytosis (principal); T45.1X5A Adverse effect of antineoplastic and immunosuppressive drugs, initial encounter; G35 Multiple sclerosis; F32.9 Major depressive disorder, single episode, unspecified; G44.40 Drug-induced headache, not elsewhere classified, not intractable; G47.00 Insomnia, unspecified; G62.9 Polyneuropathy, unspecified; Z85.828 Personal history of other malignant neoplasm of skin; Z88.2 Allergy status to sulfonamides
CPT/HCPCS: 36415; 71045; 80048; 80053; 80202; 81001; 82565; 83605; 85025; 87040; 87070; 87086; 87804; 87880; 96374; 99291; J0692; J1442; J1644; J3370; J3490; J7030; J7060

== ENCOUNTER → 2018-05-13 | Outpatient (CLI) | payer BC ==
--- NOTE | 2018-05-13 11:52 | WOMENS IMAGING REPORT ---
EXAM DESCRIPTION: 3D DX MAMMO BILAT; U/S BREAST UNILAT LIMITED COMPLETED DATE/TIME: 05/13/2018 10:43 am; 05/13/2018 11:31 am REASON FOR STUDY: BILATERAL DIAGNOSTIC MAMMO 3D/D48.62; D48.62 LEFT BREAST D48.62 NEOPLASM OF UNCER TAIN BEHAVIOR OF LEFT BREAST COMPARISON: None. TECHNIQUE: Standard craniocaudal and mediolateral oblique views of each breast recorded using digita l acquisition. Additional "push-back" craniocaudal and mediolateral oblique images acquired. Additional true lateral images of the left breast acquired. LIMITATIONS: None. FINDINGS: IMPLANTS: Bilateral subpectoral implants. RIGHT BREAST MASSES: No suspicious masses. CALCIFICATIONS: No new or suspicious calcifications. ARCHITECTURAL DISTORTION: None. DEVELOPING DENSITY: None. ASYMMETRY: None noted. OTHER: No other significant findings. LEFT BREAST MASSES: No suspicious masses. CALCIFICATIONS: No new or suspicious calcifications. ARCHITECTURAL DISTORTION: None. DEVELOPING DENSITY: None. ASYMMETRY: None noted. OTHER: No other significant finding. Read with the assistance of CAD: .[facility] - R2 Cenova Version 1.3 .[facility] - R2 Cenova Version 1.3 .[facility] - R2 Cenova Version 2.4 .[facility] [place] Cenova Version 2.4 .[facility] - R2 [employer] Version 9.2 BREAST ULTRASOUND: TECHNIQUE: Static and dynamic grayscale images acquired of the left breast in the specific areas of c linical/mammographic concern. Selected color Doppler images recorded. ELASTOGRAPHY PERFORMED: No. LIMITATIONS: None. FINDINGS: MASS: No mass identified. Normal glandular tissue. ELASTOGRAPHY CHARACTERISTICS: Not applicable. OTHER: No other significant finding. IMPRESSION: Stable mammographic appearance of both breasts. No worrisome mammographic or sonographi c findings in the left breast in the area of concern. BREAST DENSITY: b. There are scattered areas of fibroglandular density. BIRAD: 2 Benign findings. RECOMMENDATION: RECOMMENDED FOLLOW UP: Birads 1 or 2: No breast imaging finding to explain the patie nt's presenting complaint. Further intervention should be based on the degree of clinical suspicion. SPECIFIC INTERVENTION/IMAGING/CONSULTATION RECOMMENDED:No additional intervention/ imaging/consultati on needed at this time. COMMUNICATION:The imaging findings were not discussed with the patient. Her referring provider has be en notified of the findings. COMMENT: The patient has been notified of the results by letter per SA requirements. Additional no tification policies are in place for contacting patient with suspicious or incomplete findings. Quality ID #225: The [employer] recommends an annual screening mammogram for women aged 40 years or over. This facility utilizes a reminder system to ensure that all patients receive reminder letters, and/or direct phone calls for appointments. This includes reminders for routine scr eening mammograms, diagnostic mammograms, or other Breast Imaging Interventions when appropriate. Th is patient will be placed in the appropriate reminder system. The [employer] (ACR) has developed recommendations for screening MRI of the breast s in certain patient populations, to be used in conjunction with mammography. Breast MRI surveillanc e may be appropriate for women with more than 20% lifetime risk of developing breast cancer as deter mined by genetic testing, significant family history of the disease, or history of mantle radiation f or Hodgkins Disease. ACR Practice Guidelines 2008. TECHNICAL DOCUMENTATION: FINDING NUMBER: (1) ASSESSMENT: (1) JOB ID: [id number] [employer]- All Rights Reserved Reading location - IP/workstation name: [email or web address]
--- NOTE | 2018-05-13 11:52 | WOMENS IMAGING REPORT ---
EXAM DESCRIPTION: 3D DX MAMMO BILAT; U/S BREAST UNILAT LIMITED COMPLETED DATE/TIME: 05/13/2018 10:43 am; 05/13/2018 11:31 am REASON FOR STUDY: BILATERAL DIAGNOSTIC MAMMO 3D/D48.62; D48.62 LEFT BREAST D48.62 NEOPLASM OF UNCER TAIN BEHAVIOR OF LEFT BREAST COMPARISON: None. TECHNIQUE: Standard craniocaudal and mediolateral oblique views of each breast recorded using digita l acquisition. Additional "push-back" craniocaudal and mediolateral oblique images acquired. Additional true lateral images of the left breast acquired. LIMITATIONS: None. FINDINGS: IMPLANTS: Bilateral subpectoral implants. RIGHT BREAST MASSES: No suspicious masses. CALCIFICATIONS: No new or suspicious calcifications. ARCHITECTURAL DISTORTION: None. DEVELOPING DENSITY: None. ASYMMETRY: None noted. OTHER: No other significant findings. LEFT BREAST MASSES: No suspicious masses. CALCIFICATIONS: No new or suspicious calcifications. ARCHITECTURAL DISTORTION: None. DEVELOPING DENSITY: None. ASYMMETRY: None noted. OTHER: No other significant finding. Read with the assistance of CAD: .[facility] - R2 Cenova Version 1.3 .[facility] Imaging - R2 Cenova Version 1.3 .[facility] - R2 Cenova Version 2.4 .[facility] [place] R2 Cenova Version 2.4 .[facility] - R2 [employer] Version 9.2 BREAST ULTRASOUND: TECHNIQUE: Static and dynamic grayscale images acquired of the left breast in the specific areas of c linical/mammographic concern. Selected color Doppler images recorded. ELASTOGRAPHY PERFORMED: No. LIMITATIONS: None. FINDINGS: MASS: No mass identified. Normal glandular tissue. ELASTOGRAPHY CHARACTERISTICS: Not applicable. OTHER: No other significant finding. IMPRESSION: Stable mammographic appearance of both breasts. No worrisome mammographic or sonographi c findings in the left breast in the area of concern. BREAST DENSITY: b. There are scattered areas of fibroglandular density. BIRAD: 2 Benign findings. RECOMMENDATION: RECOMMENDED FOLLOW UP: Birads 1 or 2: No breast imaging finding to explain the patie nt's presenting complaint. Further intervention should be based on the degree of clinical suspicion. SPECIFIC INTERVENTION/IMAGING/CONSULTATION RECOMMENDED:No additional intervention/ imaging/consultati on needed at this time. COMMUNICATION:The imaging findings were not discussed with the patient. Her referring provider has be en notified of the findings. COMMENT: The patient has been notified of the results by letter per SA requirements. Additional no tification policies are in place for contacting patient with suspicious or incomplete findings. Quality ID #225: The [employer] recommends an annual screening mammogram for women aged 40 years or over. This facility utilizes a reminder system to ensure that all patients receive reminder letters, and/or direct phone calls for appointments. This includes reminders for routine scr eening mammograms, diagnostic mammograms, or other Breast Imaging Interventions when appropriate. Th is patient will be placed in the appropriate reminder system. The [employer] (ACR) has developed recommendations for screening MRI of the breast s in certain patient populations, to be used in conjunction with mammography. Breast MRI surveillanc e may be appropriate for women with more than 20% lifetime risk of developing breast cancer as deter mined by genetic testing, significant family history of the disease, or history of mantle radiation f or Hodgkins Disease. ACR Practice Guidelines 2008. TECHNICAL DOCUMENTATION: FINDING NUMBER: (1) ASSESSMENT: (1) JOB ID: [id number] [employer]- All Rights Reserved Reading location - IP/workstation name: [email or web address]
== END ==
LOC: WI 09:53
PROVIDERS: ATTEND Physician Assistant
DX: D48.62 Neoplasm of uncertain behavior of left breast (principal)
CPT/HCPCS: 76642; 77066; G0279; 77062

== ENCOUNTER 2019-07-02 07:16 | Emergency (ER) | payer BC ==
--- NOTE | 2019-07-02 08:51 | ER Document Report ---
ED General - General Chief Complaint: Arm Pain Stated Complaint: ARM PAIN/SWELLING Time Seen by Provider: 07/02/19 08:05 Primary Care Provider: MARLEY CASILLAS PA-C [Primary Care Provider] - Follow up in 3-5 days Notes: 44-year-old female with history of MS presents with right arm swelling for the past several months that is gotten worse over the past several weeks. Patient has been seen by her primary care doctor and has been given clindamycin with no relief. Patient's PCP also ordered x-rays that were negative and lab work to rule out gout which were also inconclusive. Patient was recently started on Ajovy for treatment of migraines. Patient states she has blisters to her right thumb and the pain started radiating up to her shoulder. Patient is also noted some streaking of redness. Patient denies any fever. Patient states her PCP sent her to the ER to have ultrasound done to rule out blood clot. Patient denies any chest pain, dyspnea, nausea/vomiting, abdominal pain. TRAVEL OUTSIDE OF THE [place] IN LAST 30 DAYS: No - Related Data Allergies/Adverse Reactions: Sulfa (Sulfonamide Antibiotics) Allergy (Intermediate, Verified 03/27/18 16:33) rash/hives Past Medical History - Social History Smoking Status: Never Smoker Frequency of alcohol use: Rare Drug Abuse: None Family History: Reviewed & Not Pertinent Patient has suicidal ideation: No Patient has homicidal ideation: No - Past Medical History Cardiac Medical History: Denies: Hx Heart Attack, Hx Hypertension Pulmonary Medical History: Denies: Hx Asthma Neurological Medical History: Denies: Hx Cerebrovascular Accident, Hx Seizures Renal/ Medical History: Denies: Hx Peritoneal Dialysis GI Medical History: Denies: Hx Hepatitis, Hx Hiatal Hernia, Hx Ulcer Psychiatric Medical History: Reports: Hx Depression Infectious Medical History: Denies: Hx Hepatitis Past Surgical History: Reports: Hx Breast Surgery - Breast Augmentation, Hx Oral Surgery - Aneta Teeth, Hx Tonsillectomy, Other - Breast augmentation. Aneta teeth extraction,. Denies: Hx Hysterectomy, Hx Mastectomy, Hx Open Heart Surgery, Hx Pacemaker - Immunizations Hx Diphtheria, Pertussis, Tetanus Vaccination: Yes Review of Systems - Review of Systems Notes: Constitutional: Negative for fever. HENT: Negative for sore throat. Eyes: Negative for visual changes. Cardiovascular: Negative for chest pain. Respiratory: Negative for shortness of breath. Gastrointestinal: Negative for abdominal pain, vomiting or diarrhea. Genitourinary: Negative for dysuria. Musculoskeletal: Positive for right arm pain and swelling. Negative for back pain. Skin: Positive for rash. Neurological: Negative for headaches, weakness or numbness. 10 point ROS negative except as marked above and in HPI. Physical Exam - Vital signs Vitals: Temp Pulse Resp BP Pulse Ox 98.1 F 71 14 107/67 99 07/02/19 07:20 07/02/19 07:20 07/02/19 07:20 07/02/19 07:20 07/02/19 07:20 - Notes Notes: GENERAL: Well-appearing, well-nourished and in no acute distress. HEAD: Atraumatic, normocephalic. EYES: Extraocular movements intact, sclera anicteric, conjunctiva are normal. NECK: Normal range of motion, supple without lymphadenopathy or JVD. EXTREMITIES: Normal range of motion, no pitting or edema. No clubbing or cyanosis. RIGHT EXTREMITY: Blisters to thumb. Redness to thumb and small area of dorsal hand. Swelling to right thumb. Minimal swelling to right arm. Area is not hot to touch. Radial pulses 2+. Cap refill < 2 sec. NEUROLOGICAL: Cranial nerves II through XII grossly intact. Normal speech, normal gait. PSYCH: Normal mood, normal affect. SKIN: See right extremity. Warm, Dry, normal turgor, no rashes or lesions noted. Course - Re-evaluation Re-evalutation: 07/02/19 44 y/o female with history of MS presents for right arm/hand swelling with blisters on right thumb. Pt worked up by PCP which included labwork to rule out gout and x-rays. Pt has also recently started Ajovy which has concerns for hypersensitivity reaction which are treated by corticosteroids. Pt is not currently on steroids. Pt is also on Acyclovir daily to prevent shingles. US of right UE ordered to rule out DVT. Basic labs ordered. Pt offered pain medication but declining at this time. 07/02/19 10:48 US wet read negative for DVT. Lab work is within normal limits except for mildly decreased WBC. Patient's ultrasound shows no DVT as read by radiologist. Patient given Keflex for skin infection and prednisone due to possible hypersensitivity reaction. Patient given close follow-up with PCP. Patient also instructed to follow-up with her bailiff in the next week or so if blisters do not improve on her thumb. Strict return precautions given. Patient and patient's voiced understanding and agree with plan of care. - Vital Signs Vital signs: Temp Pulse Resp BP Pulse Ox 98.2 F 71 16 111/57 L 99 07/02/19 11:28 07/02/19 11:28 07/02/19 11:28 07/02/19 11:28 07/02/19 11:28 - Laboratory Result Diagrams: 07/02/19 08:55 07/02/19 08:55 Laboratory results interpreted by me: 07/02/19 08:55 WBC 3.7 L Lymph % (Auto) 7.4 L [place] % (Auto) 13.7 H Absolute Lymphs (auto) 0.3 L Discharge - Discharge Clinical Impression: Rash, Cellulitis of right hand, Pain and swelling of right upper extremity Condition: Stable Disposition: HOME, SELF-CARE Additional Instructions: Your ultrasound did not show any blood clots. Your lab work was reassuring today. Please take medications as prescribed. Please follow-up with your primary care doctor in 3 to 5 days. Return to ER for any worsening symptoms, including spreading of rash, increased swelling, increased pain, area feeling hotter to touch than the surrounding area, fever, chest pain, shortness of breath, nausea/vomiting, abdominal pain, or any other symptoms that are concerning to you. Prescriptions: Cephalexin Monohydrate [Keflex 500 mg Capsule] 500 mg PO QID #20 capsule Prednisone 10 mg PO BID #10 tablet Referrals: MARLEY CASILLAS PA-C [Primary Care Provider] - Follow up in 3-5 days
[2019-07-02 09:07] LABS: ABSOLUTE EOSINOPHILS # (AUTO) 0.2 10^3/uL (0.0-0.6); ABSOLUTE LYMPHOCYTES (AUTO) 0.3 10^3/uL (0.5-4.7); ABSOLUTE MONOCYTES (AUTO) 0.5 10^3/uL (0.1-1.4); ABSOLUTE NEUT (AUTO) 2.8 10^3/uL (1.7-8.2); BASOPHILS % (AUTO) 0.3 % (0-2); EOSINOPHILS % (AUTO) 4.1 % (0-6); HEMATOCRIT 39.2 % (36.0-47.0); HEMOGLOBIN 13.5 g/dL (12.0-15.5); LYMPHOCYTES % (AUTO) 7.4 % (13-45); MEAN CORPUSCULAR HEMOGLOBIN 31.5 pg (27.0-33.4); MEAN CORPUSCULAR HGB CONC 34.3 g/dL (32.0-36.0); MEAN CORPUSCULAR VOLUME 92 fl (80-97); MONOCYTES % (AUTO) 13.7 % (3-13); PLATELET COUNT 311 10^3/uL (150-450); RED BLOOD COUNT 4.28 10^6/uL (3.72-5.28); RED CELL DISTRIBUTION WIDTH 13.8 % (11.5-14.0); SEGMENTED NEUTROPHILS % (AUTO) 74.5 % (42-78); TOTAL CELLS COUNTED % (AUTO) 100 %; WHITE BLOOD COUNT 3.7 10^3/uL (4.0-10.5)
[2019-07-02 09:12] LABS: INTERNATIONAL RATION (INR) 1.06; PROTHROMBIN TIME 13.9 SEC (11.4-15.4)
[2019-07-02 09:13] LABS: PARTIAL THROMBOPLASTIN TIME 28.8 SEC (23.5-35.8)
[2019-07-02 09:23] LABS: ANION GAP 10 (5-19); BLOOD UREA NITROGEN 9 mg/dL (7-20); CALCIUM 9.8 mg/dL (8.4-10.2); CARBON DIOXIDE 28 mmol/L (22-30); CHLORIDE 101 mmol/L (98-107); GLUCOSE 90 mg/dL (75-110); POTASSIUM 4.5 mmol/L (3.6-5.0)
--- NOTE | 2019-07-02 11:09 | RADIOLOGY REPORT (SQ) ---
EXAM DESCRIPTION: VENOUS UNILATERAL UPPER COMPLETED DATE/TIME: 07/02/2019 10:59 am REASON FOR STUDY: right arm swelling/pain COMPARISON: None. TECHNIQUE: Dynamic and static haynes scale and color images acquired of the right arm venous system. S elected spectral images acquired with additional compression and augmentation maneuvers. The contrala teral subclavian vein and internal jugular vein were not imaged. Images stored on PACS. LIMITATIONS: None. FINDINGS: INTERNAL JUGULAR VEIN: Normal phasicity, compression, augmentation. No visualized echogeni c material on haynes scale. No defects on color images. Comparison opposite side normal. SUBCLAVIAN VEIN: Normal compression, augmentation. No visualized echogenic material on haynes scale. No defects on color images. AXILLARY VEIN: Normal compression, augmentation. No visualized echogenic material on haynes scale. No d efects on color images. BRACHIAL VEIN: Normal compression, augmentation. No visualized echogenic material on haynes scale. No d efects on color images. BASILIC VEIN: Normal compression, augmentation. No visualized echogenic material on haynes scale. No de fects on color images. CEPHALIC VEIN: Normal compression, augmentation. No visualized echogenic material on haynes scale. No d efects on color images. OTHER: No other significant finding. CONTRALATERAL SUBCLAVIAN VEIN AND INTERNAL JUGULAR VEIN: Not imaged. IMPRESSION: NO EVIDENCE DVT OR SVT IN THE RIGHT ARM. TECHNICAL DOCUMENTATION: JOB ID: [id number]- All Rights Reserved Reading location - IP/workstation name: [email or web address]
[2019-07-02] MEDS ORDERED: HYDROCODONE/ACETAMINOPHEN 5-325 MG (6 TAB/ER DISP) PO PRN (11:13)
[2019-07-02] MEDS ORDERED: ONDANSETRON ODT 4 MG TAB (6 TAB/ER DISP) PO PRN (11:13)
[2019-07-02] MEDS ORDERED: HYDROCODONE/ACETAMINOPHEN 5-325 MG TABLET PO ONE (11:13)
[2019-07-02] MEDS ORDERED: ONDANSETRON 4 MG TAB.RAPDIS PO ONE (11:13)
[2019-07-02 11:33] VITALS: BP 111/57
== END 2019-07-02 11:37 | disposition home or self-care (01) ==
LOC: ER 07:16
DX: L03.113 Cellulitis of right upper limb (principal); R21 Rash and other nonspecific skin eruption; R22.31 Localized swelling, mass and lump, right upper limb; G35 Multiple sclerosis; Z88.2 Allergy status to sulfonamides
CPT/HCPCS: 99284; 36415; 85025; 85610; 85730; 80048; 93971; S0119

== ENCOUNTER → 2019-11-10 | Outpatient (CLI) | payer BC ==
[2019-11-10 12:52] LABS: ABSOLUTE EOSINOPHILS # (AUTO) 0.1 10^3/uL (0.0-0.6); ABSOLUTE LYMPHOCYTES (AUTO) 0.5 10^3/uL (0.5-4.7); ABSOLUTE MONOCYTES (AUTO) 0.5 10^3/uL (0.1-1.4); ABSOLUTE NEUT (AUTO) 5.1 10^3/uL (1.7-8.2); BASOPHILS % (AUTO) 0.4 % (0-2); EOSINOPHILS % (AUTO) 2.3 % (0-6); HEMATOCRIT 37.8 % (36.0-47.0); HEMOGLOBIN 13.2 g/dL (12.0-15.5); LYMPHOCYTES % (AUTO) 7.5 % (13-45); MEAN CORPUSCULAR HEMOGLOBIN 32.1 pg (27.0-33.4); MEAN CORPUSCULAR HGB CONC 34.9 g/dL (32.0-36.0); MEAN CORPUSCULAR VOLUME 92 fl (80-97); MONOCYTES % (AUTO) 7.9 % (3-13); PLATELET COUNT 358 10^3/uL (150-450); RED BLOOD COUNT 4.11 10^6/uL (3.72-5.28); RED CELL DISTRIBUTION WIDTH 13.6 % (11.5-14.0); SEGMENTED NEUTROPHILS % (AUTO) 81.9 % (42-78); TOTAL CELLS COUNTED % (AUTO) 100 %; WHITE BLOOD COUNT 6.2 10^3/uL (4.0-10.5)
[2019-11-10 13:14] LABS: C-REACTIVE PROTEIN 5.7 mg/L (<10.0); URIC ACID 5.6 mg/dL (2.5-7.5)
[2019-11-10 13:30] LABS: ERYTHROCYTE SEDIMENTATION RATE 8 mm/hr (0-20)
--- NOTE | 2019-11-10 14:17 | RADIOLOGY REPORT (SQ) ---
EXAM DESCRIPTION: MRI RT UPPER JOINT WITHOUT IMAGES COMPLETED DATE/TIME: 11/10/2019 1:03 pm REASON FOR STUDY: CARPAL TUNNEL SYNDROME, RIGHT UPPER LIMB G56.01 CARPAL TUNNEL SYNDROME, RIGHT UPP ER LIMB COMPARISON: None. TECHNIQUE: Non contrasted non arthrogram MRI right wrist images acquired and stored on PACS. Multip lanar images include fat sensitive sequences as T1, fluid sensitive sequences as FST2/STIR, cartilage sensitive sequences as FSPD, gradient echo sequences. LIMITATIONS: None. FINDINGS: There is massive tendon sheath thickening throughout the flexor tendon sheaths at the wris t, extending from distal forearm through the carpal tunnel, and into the palmar aspect of the hand. This involves an 8 to 9 cm long segment of flexor tendons, best shown on sagittal image 11, and axial STIR images 10-20. At the level of the hook of the hamate bone, the median nerve is flattened and h igh in signal on axial STIR images 9 and 10. No extensor tendinopathy. No evidence of deQuervain's tendinopathy. BONE MARROW: No alteration of signal to suggest marrow replacement or edema. No occult fracture. No l arge osteophytes. CARPAL ALIGNMENT AND ARTICULATION: Normal congruity of sigmoid notch at level of distal RUJ without p ositive or negative ulnar variance. Normal capitolunate angle. No widening of scapholunate articulati on. EFFUSION: None noted. No loose bodies. SCAPHOLUNATE LIGAMENT: Intact without tear. LUNATE-TRIQUETRAL LIGAMENT: Intact without tear. TFC COMPLEX: Radial and ulnar attachments normal. Meniscus intact. Extensor carpi ulnaris tendon norm al without tendinopathy. EXTRINSIC LIGAMENTS AND DISTAL RADIO-ULNAR JOINT: Dorsal and volar distal RUJ intact without subluxat ion of the distal ulna. 1-6 EXTENSOR COMPARTMENTS: Normal. Specifically no tendinopathy of the abductor pollicis longus or ex tensor pollicis brevis to suggest de Quervain's Syndrome. CARPAL TUNNEL AND MEDIAN NERVE: As above. OTHER: No other significant finding. IMPRESSION: Marked thickening of the flexor tendon sheaths from the distal forearm through the carpa l tunnel and into the palmar aspect of the hand. Associated median nerve compression with increased intrinsic signal on STIR images compatible with ca rpal tunnel syndrome TECHNICAL DOCUMENTATION: JOB ID: [id number] 2010 [employer]- All Rights Reserved Reading location - IP/workstation name: [email or web address]
== END ==
LOC: RAD 12:06
PROVIDERS: ATTEND Orthopaedic Surgery
DX: G56.01 Carpal tunnel syndrome, right upper limb (principal); M65.831 Other synovitis and tenosynovitis, right forearm
CPT/HCPCS: 36415; 84550; 85025; 85652; 86038; 86140; 86200; 86431

== ENCOUNTER 2019-11-11 09:09 | Day surgery (SDC) | payer BC ==
[~2019-11-11 09:09] MED LIST: CEFAZOLIN SODIUM 2 GM in DEXTROSE 5%-WATER 100 ML IV PRN
--- NOTE | 2019-11-11 10:04 | RADIOLOGY REPORT (SQ) ---
EXAM DESCRIPTION: CHEST SINGLE VIEW IMAGES COMPLETED DATE/TIME: 11/11/2019 9:49 am REASON FOR STUDY: PRE-OP COMPARISON: None. EXAM PARAMETERS: NUMBER OF VIEWS: One view. TECHNIQUE: An AP view of the chest was obtained. RADIATION DOSE: NA LIMITATIONS: None. FINDINGS: LUNGS AND PLEURA: No consolidation, pleural effusion or pneumothorax. MEDIASTINUM AND HILAR STRUCTURES: No mediastinal or hilar contour abnormality. HEART AND VASCULAR STRUCTURES: The cardiac silhouette and pulmonary vasculature are within normal ontiveros its. BONES: No acute findings. HARDWARE: None in the chest. OTHER: No other finding. IMPRESSION: No acute cardiopulmonary process. TECHNICAL DOCUMENTATION: JOB ID: [id number] 2010 [employer]- All Rights Reserved Reading location - IP/workstation name: [email or web address]
[2019-11-11 10:05] LABS: ABSOLUTE EOSINOPHILS # (AUTO) 0.2 10^3/uL (0.0-0.6); ABSOLUTE LYMPHOCYTES (AUTO) 0.4 10^3/uL (0.5-4.7); ABSOLUTE MONOCYTES (AUTO) 0.9 10^3/uL (0.1-1.4); BASOPHILS % (AUTO) 0.2 % (0-2); EOSINOPHILS % (AUTO) 3.9 % (0-6); HEMATOCRIT 36.3 % (36.0-47.0); HEMOGLOBIN 12.5 g/dL (12.0-15.5); LYMPHOCYTES % (AUTO) 6.9 % (13-45); MEAN CORPUSCULAR HEMOGLOBIN 31.8 pg (27.0-33.4); MEAN CORPUSCULAR HGB CONC 34.4 g/dL (32.0-36.0); MEAN CORPUSCULAR VOLUME 92 fl (80-97); MONOCYTES % (AUTO) 15.7 % (3-13); PLATELET COUNT 325 10^3/uL (150-450); RED BLOOD COUNT 3.93 10^6/uL (3.72-5.28); RED CELL DISTRIBUTION WIDTH 13.4 % (11.5-14.0); SEGMENTED NEUTROPHILS % (AUTO) 73.3 % (42-78); TOTAL CELLS COUNTED % (AUTO) 100 %; WHITE BLOOD COUNT 5.4 10^3/uL (4.0-10.5)
[2019-11-11 10:36] LABS: ANION GAP 8 (5-19); BLOOD UREA NITROGEN 11 mg/dL (7-20); CALCIUM 9.4 mg/dL (8.4-10.2); CARBON DIOXIDE 27 mmol/L (22-30); CHLORIDE 102 mmol/L (98-107); GLUCOSE 103 mg/dL (75-110); POTASSIUM 4.7 mmol/L (3.6-5.0)
[2019-11-11] MEDS ORDERED: MIDAZOLAM 2 MG/2 ML INJ ONE (11:58)
[2019-11-11] MEDS ORDERED: FENTANYL CITRATE INJ/PF 100 MCG/2 ML AMPUL ONE ×2 (11:58→13:51)
[2019-11-11] MEDS ORDERED: ONDANSETRON HCL INJ/PF 4 MG/2 ML SDV ONE (11:58)
[2019-11-11] MEDS ORDERED: PROPOFOL INJ 200 MG/20 ML VIAL IV ONE (11:59)
[2019-11-11] MEDS ORDERED: LIDOCAINE 1% INJ-PF (10 MG/ML) 30 ML SDV ONE (11:59)
[2019-11-11] MEDS ORDERED: FENTANYL CITRATE INJ/PF 100 MCG/2 ML AMPUL IV PRN ×3 (12:37)
[2019-11-11] MEDS ORDERED: PROMETHAZINE HCL INJ 25 MG/1 ML VIAL IV PRN (12:37)
[2019-11-11] MEDS ORDERED: DIPHENHYDRAMINE HCL 50 MG/ML VIAL IV PRN (12:37)
[2019-11-11] MEDS ORDERED: MEPERIDINE HCL/PF INJ 25 MG/1 ML DISP.SYRIN IV PRN (12:37)
[2019-11-11] MEDS ORDERED: MORPHINE SULFATE 10 MG/ML INJ IV PRN (12:37)
[2019-11-11] MEDS ORDERED: ONDANSETRON HCL INJ/PF 4 MG/2 ML SDV IV PRN (13:43)
[2019-11-11] MEDS ORDERED: HYDROCODONE/ACETAMINOPHEN 5-325 MG TABLET PO PRN (13:43)
--- NOTE | 2019-11-11 13:43 | Operative Report ---
Operative Report DATE OF SURGERY: 11/11/19 PREOPERATIVE DIAGNOSIS: Right carpal tunnel syndrome, flexor tenosynovitis POSTOPERATIVE DIAGNOSIS: same OPERATION: Right open carpal tunnel release. Right flexor tenosynovectomy FDS/FDS/FPL SURGEON: MADELEINE MAGALLANES ANESTHESIA: LMAC TISSUE REMOVED OR ALTERED: Tenosynovium sent for aerobic, anaerobic, AFB, fungal. Tenosynovium sent to pathology COMPLICATIONS: None ESTIMATED BLOOD LOSS: Minimal PROCEDURE: Indication for above history: 44-year-old female with numbness and tingling throughout her upper extremity. Patient developed significant swelling on the volar aspect of the wrist there was concern with underlying tenosynovitis and thus patient was sent for stat MRI and labs which demonstrated above finding. At that point decision was made to proceed with operative intervention. Risk and benefits were explained patient verbalized understanding consented for surgical procedure. Procedure In Detail: Patient was seen and evaluated in the preoperative holding area. The RIGHT upper extremity was initialized and marked. Patient received Ancef IV for bacterial prophylaxis. Patient was taken back to the operative room where transferred operative table. Patient was then placed under MAC anesthesia. Once adequately anesthetized, a nonsterile tourniquet was placed on the upper extremity. A surgical team debriefing was performed ensuring all instrumentation was available, the surgical procedure was discussed with possible concerns reviewed. Skin was prepped with alcohol and 20cc of 1% lidocaine without epinephrine was injected locally and w/in carpal canal. The upper extremity was prepped with chlorhexidine and alcohol and draped in a sterile fashion. A timeout was done identifying correct patient, procedure and extremity everyone in attendance agree with this and verbalized no concerns.The extremity was then exsanguinated the tourniquet was inflated to 250 mmHg. A longitudinal skin incision was made from Robles's cardinal line approximately curvilinear extension placed across the wrist flexion crease. Blunt dissection was performed. Palmar fascia was then incised in line with the skin incision and transverse carpal ligament identified. Transverse carpal ligament was released just proximal to superficial palmar arch no residual compression was noted distally. Transverse carpal ligament was then released proximally including the volar intubational fascia. Once the volar antebrachial fascia was released significant tenosynovium was identified along the volar aspect of the wrist. Neural lysis was performed to the median nerve which was then retracted. A significant amount of tenosynovium was excised from the FDS to the index, middle, ring and small finger. Tenosynovium was excised from the FDP to the index, middle, ring, small finger. Finally tenosynovectomy was performed to the FPL tendon. There is no evidence of purulent material. No evidence of tendon disruption or abnormality. Wound was then copiously irrigated with normal saline. Tenosynovium was sent to pathology for further diagnosis including possible inflammatory arthropathy and was also sent to microbiology. Tourniquet was then deflated. Any peripheral bleeding was controlled with bipolar cautery into the wound was dry. Subcutaneous tissues were closed with interrupted 4-0 Monocryl suture. Skin was closed with horizontal mattress 4-0 nylon suture. Wound was dressed with Xeroform 4 4 the patient was placed in a volar resting splint. Sponge counts, instrument counts, needle counts were correct. Patient was then awoken from anesthesia. Transferred from the operating room table to the operating room stretcher. There was no intraoperative complications patient tolerated procedure well stable to PACU. Postoperative plan: Patient will follow-up in the office in 2 weeks for wound check. We will discuss intraoperative cultures/pathology results
--- NOTE | 2019-11-11 13:47 | Discharge Summary ---
Discharge Summary (SDC) - Discharge Final Diagnosis: Right carpal tunnel syndrome Date of Surgery: 11/11/19 Discharge Date: 11/11/19 Condition: Good Treatment or Instructions: Schedule Follow Up w/ Dr. Carson Higgins @ [facility] to be seen in 10-14 days or as scheduled [place]: [place]: [place]: May remove dressing on postop day #3, keep incision covered and dry. Ice and elevate May begin finger range of motion attempting to make full fist. Stool softener of choice when on pain medication. USE OF [id number] IBUPROFEN: Ibuprofen (Advil, Nuprin, Medipren, Motrin IB) is a medication for fever and pain control. In addition, it has anti- inflammatory effects which may be beneficial, especially in the treatment of injuries. It's best to take ibuprofen with food. Persons with ulcer disease or allergy to aspirin should notify their physician of this before taking ibuprofen. Ibuprofen can be given every four to six hours, for a total of four doses daily. Age Pain or fever dose Antiinflammatory dose 6-8 yr 200 mg (1 tab) 200 mg (1 tab) 9-11 yr 200 mg (1 tab) 200-400 mg (1-2 tab) 11-14 yr 200-400 mg (1-2 tab) 400 mg (2 tab) 15-adult 400 mg (2 tab) 600 mg (3 tab) ORAL NARCOTIC MEDICATION: You have been given a prescription for pain control. This medication is a narcotic. It's best taken with food, as nausea can result if taken on an empty stomach. Don't operate machinery or drive within six hours of taking this medication. Do not combine this medicine with alcohol, or with any medication which can cause sedation (such as cold tablets or sleeping pills) unless you get permission from the physician. Narcotics tend to cause constipation. If possible, drink plenty of fluids and eat a diet high in fiber and fruits. Please be aware that prescription narcotics also have the potential for abuse. People become addicted to these medications because of the general sense of wellbeing that they induce. This feeling along with a significant reduction in tension, anxiety, and aggression provides a stimulating seductive quality to these drugs. Once your pain is under control, we encourage you to discard your unused narcotics. Prescriptions: Hydrocodone/Acetaminophen [[place] 5-325 mg Tablet] 1 tab PO Q6 PRN #20 tablet PRN Reason: Referrals: ARMIDA RODAS MD [Primary Care Provider] - Discharge Diet: As Tolerated Respiratory Treatments at Home: Deep Breathing/Coughing Discharge Activity: No Lifting Over 10 Pounds, No Lifting/Push/Pulling Report the Following to Your Physician Immediately: Fever over 101 Degrees, Unusual Bleeding, Redness, Swelling, Warmth, Increased Soreness
[2019-11-11] MEDS ORDERED: HYDROCODONE/ACETAMINOPHEN 5-325 MG TABLET ONE (14:45)
--- NOTE | 2019-11-11 15:36 | EKG REPORT ---
SEVERITY:- NORMAL ECG - SINUS RHYTHM : Confirmed by: Carlos Rodríguez MD 11-Nov-2019 15:35:54
[2019-11-11 17:43] VITALS: BP 108/69
== END 2019-11-11 16:00 | disposition home or self-care (01) ==
LOC: OROUT 09:09
PROVIDERS: ATTEND Orthopaedic Surgery
DX: G56.01 Carpal tunnel syndrome, right upper limb (principal); M65.831 Other synovitis and tenosynovitis, right forearm; G35 Multiple sclerosis; D64.9 Anemia, unspecified; Z88.2 Allergy status to sulfonamides; Z79.899 Other long term (current) drug therapy; Z85.828 Personal history of other malignant neoplasm of skin; Z87.891 Personal history of nicotine dependence
CPT/HCPCS: 36415; 87070; 87205; 87206; 87116; 87101; 84703; 85025; 87635; 87075; 80048; 87015; 71045; 93005; 93010; 01810; 64721; 25115; J2250; J0690; J3010; J3490; J2405; J7060; J2704; C9803; 1810